=== PATIENT | male | born 1965 | race Caucasian/White ===

== ENCOUNTER 2020-11-10 08:38 | Outpatient (REF) | payer OTHER, SELFPAY ==
[2020-11-10 11:13] LABS: MANUAL DIFF FLAG NO
[2020-11-10 11:26] LABS: Basophils Percent Auto 0.6 % (0-2); Eosinophils Absolute Auto 0.1 X10*3/uL (0.0-0.4); Eosinophils Percent Auto 1.8 % (0-4); Hematocrit 46.2 % (42-52); Hemoglobin 15.2 g/dl (14.0-18.0); Imm Gran Abs Auto 0.03 X10*3/uL (0.00-0.03); Imm Gran Pct Auto 0.6 % (0.0-0.4); Lymphocytes Absolute Auto 1.4 X10*3/uL (1.2-4.9); Lymphocytes Percent Auto 29.4 % (20-40); Mean Corpuscular HGB Conc 32.9 g/dl (31.0-36.0); Mean Corpuscular Hemoglobin 30.5 pg (27.0-33.0); Mean Corpuscular Volume 92.8 fL (80-98); Mean Platelet Volume 11.1 fL (9.4-12.4); Monocytes Absolute Auto 0.4 X10*3/uL (0.1-1.2); Monocytes Percent Auto 7.1 % (2-11); Neutrophils Percent Auto 60.5 % (45-73); Platelet Count 171 X10*3/uL (160-400); Red Blood Count 4.98 X10*6/uL (4.60-5.80); Red Cell Distribution Width 12.3 % (11.0-16.0); White Blood Count 4.9 X10*3/uL (4.8-10.8)
[2020-11-10 11:37] LABS: Estimated Average Glucose 278 mg/dL; Hemoglobin A1c % 11.3 %
[2020-11-10 11:49] LABS: Alanine Aminotransferase 36 U/L (0-40); Albumin Level 4.3 g/dL (3.5-5.0); Alkaline Phosphatase 98 U/L (39-117); Anion Gap 14 (12-20); Aspartate Amino Transferase 24 U/L (5-37); Blood Urea Nitrogen 13 mg/dL (9-16); Calcium 8.8 mg/dL (8.4-10.2); Carbon Dioxide 28 mmol/L (22-29); Chloride 101 mmol/L (96-108); Cholesterol 170 mg/dL; Estimated Glomerular Filt Rate > 60; Glucose Fasting 296 mg/dL (60-99); HDL Cholesterol 44 mg/dL; LDL Cholesterol Calculated 86 mg/dl; Sodium 139 mmol/L (135-145); Total Protein 7.9 g/dL (6.5-8.0); Triglycerides 201 mg/dL
[2020-11-10 12:14] LABS: Vitamin D 25-OH Total 29.5 ng/mL (>30)
== END 2020-11-10 08:39 | disposition home or self-care (01) ==
LOC: HO.HMGCLDS 08:38
PROVIDERS: PCP Internal Medicine; Visit Provider Internal Medicine
DX: Z00.00 Encounter for general adult medical examination without abnormal findings (principal); E78.2 Mixed hyperlipidemia; E55.9 Vitamin D deficiency, unspecified; E66.09 Other obesity due to excess calories; F41.9 Anxiety disorder, unspecified
CPT/HCPCS: 36415; 80053; 80061; 82306; 83036; 85025

== ENCOUNTER 2020-11-13 12:57 | Outpatient (REF) | payer OTHER, SELFPAY ==
[2020-11-13 13:58] LABS: Estimated Average Glucose 275 mg/dL; Hemoglobin A1c % 11.2 %
[2020-11-13 14:06] LABS: Glucose Urine UA >=1000 MG/DL (NEG); Leukocyte Esterase Urine NEG (NEG); Nitrite Urine NEG (NEG); PH 5.5 (5.0-8.0); Specific Gravity - Urine 1.025 (1.005-1.025); Urine Blood NEG (NEG); Urine Ketones NEG (NEG); Urine Protein NEG (NEG-TRACE)
[2020-11-13 14:23] LABS: Glucose Random 279 mg/dL (60-115)
[2020-11-13 14:25] LABS: Appearance Urine CLEAR; Color Urine YELLOW
[2020-11-13 14:38] LABS: Creatinine Urine 94.16 mg/dL; Microalbumin Urine < 5.0 mg/L
[2020-11-13 15:11] LABS: RBC Urine 0 /HPF (0); WBC Urine 0 /HPF (0-4)
== END 2020-11-13 12:58 | disposition home or self-care (01) ==
LOC: HO.HMGCLDS 12:57
PROVIDERS: PCP Internal Medicine; Visit Provider Internal Medicine
DX: E11.9 Type 2 diabetes mellitus without complications (principal)
CPT/HCPCS: 36415; 81001; 82043; 82947; 83036

== ENCOUNTER 2021-03-09 09:33 | Outpatient (REF) | payer OTHER, SELFPAY ==
[2021-03-09 11:43] LABS: Glucose Urine UA NEG (NEG); Leukocyte Esterase Urine NEG (NEG); Nitrite Urine NEG (NEG); Specific Gravity - Urine 1.015 (1.005-1.025); Urine Blood NEG (NEG); Urine Ketones NEG (NEG); Urine Protein NEG (NEG-TRACE)
[2021-03-09 11:51] LABS: Appearance Urine CLEAR; Color Urine YELLOW
[2021-03-09 12:15] LABS: RBC Urine 0-2 /HPF (0); WBC Urine 0-2 /HPF (0-4)
[2021-03-09 12:31] LABS: Estimated Average Glucose 169 mg/dL; Hemoglobin A1c % 7.5 %
[2021-03-09 12:53] LABS: Creatinine Urine 97.65 mg/dL; Microalbumin Urine < 5.0 mg/L
[2021-03-09 13:47] LABS: Alanine Aminotransferase 29 U/L (0-40); Albumin Level 4.2 g/dL (3.5-5.0); Alkaline Phosphatase 74 U/L (39-117); Anion Gap 13 (12-20); Aspartate Amino Transferase 22 U/L (5-37); Bilirubin Total 1.3 mg/dL (0.0-1.0); Blood Urea Nitrogen 12 mg/dL (9-16); Calcium 9.1 mg/dL (8.4-10.2); Carbon Dioxide 23 mmol/L (22-29); Chloride 105 mmol/L (96-108); Cholesterol 160 mg/dL; Estimated Glomerular Filt Rate > 60; Glucose Fasting 164 mg/dL (60-99); HDL Cholesterol 42 mg/dL; LDL Cholesterol Calculated 82 mg/dl; Potassium 4.1 mmol/L (3.3-5.1); Sodium 137 mmol/L (135-145); Total Protein 7.5 g/dL (6.5-8.0); Triglycerides 180 mg/dL
== END 2021-03-09 09:34 | disposition home or self-care (01) ==
LOC: HO.HMGCLDS 09:33
PROVIDERS: PCP Internal Medicine; Visit Provider Internal Medicine
DX: E11.9 Type 2 diabetes mellitus without complications (principal)
CPT/HCPCS: 36415; 80053; 80061; 81001; 82043; 83036

== ENCOUNTER 2021-06-01 07:07 | Outpatient (REF) | payer OTHER, SELFPAY ==
[2021-06-01 11:31] LABS: MANUAL DIFF FLAG NO
[2021-06-01 11:40] LABS: Basophils Percent Auto 0.5 % (0-2); Eosinophils Absolute Auto 0.1 X10*3/uL (0.0-0.4); Eosinophils Percent Auto 1.9 % (0-4); Hematocrit 43.9 % (42-52); Hemoglobin 14.6 g/dl (14.0-18.0); Imm Gran Abs Auto 0.03 X10*3/uL (0.00-0.03); Imm Gran Pct Auto 0.5 % (0.0-0.4); Lymphocytes Absolute Auto 1.7 X10*3/uL (1.2-4.9); Lymphocytes Percent Auto 29.2 % (20-40); Mean Corpuscular HGB Conc 33.3 g/dl (31.0-36.0); Mean Corpuscular Volume 93.2 fL (80-98); Mean Platelet Volume 10.8 fL (9.4-12.4); Monocytes Absolute Auto 0.5 X10*3/uL (0.1-1.2); Monocytes Percent Auto 8.6 % (2-11); Neutrophils Absolute Auto 3.4 X10*3/uL (2.0-8.3); Neutrophils Percent Auto 59.3 % (45-73); Platelet Count 212 X10*3/uL (160-400); Red Blood Count 4.71 X10*6/uL (4.60-5.80); Red Cell Distribution Width 12.8 % (11.0-16.0); White Blood Count 5.7 X10*3/uL (4.8-10.8)
[2021-06-01 12:18] LABS: Vitamin D 25-OH Total 37.6 ng/mL (>30)
[2021-06-01 12:29] LABS: Alanine Aminotransferase 31 U/L (0-40); Albumin Level 4.4 g/dL (3.5-5.0); Alkaline Phosphatase 69 U/L (39-117); Anion Gap 13 (12-20); Aspartate Amino Transferase 26 U/L (5-37); Bilirubin Total 1.4 mg/dL (0.0-1.0); Blood Urea Nitrogen 14 mg/dL (9-16); Calcium 9.2 mg/dL (8.4-10.2); Carbon Dioxide 25 mmol/L (22-29); Chloride 104 mmol/L (96-108); Cholesterol 116 mg/dL; Estimated Glomerular Filt Rate > 60; Glucose Fasting 129 mg/dL (60-99); HDL Cholesterol 39 mg/dL; LDL Cholesterol Calculated 51 mg/dl; Potassium 3.9 mmol/L (3.3-5.1); Sodium 138 mmol/L (135-145); Total Protein 7.6 g/dL (6.5-8.0); Triglycerides 131 mg/dL
[2021-06-01 14:25] LABS: Estimated Average Glucose 163 mg/dL; Hemoglobin A1c % 7.3 %
== END 2021-06-01 07:08 | disposition home or self-care (01) ==
LOC: HO.HMGCLDS 07:07
PROVIDERS: PCP Internal Medicine; Visit Provider Internal Medicine
DX: E11.9 Type 2 diabetes mellitus without complications (principal); E66.09 Other obesity due to excess calories; E78.2 Mixed hyperlipidemia; E55.9 Vitamin D deficiency, unspecified; F41.9 Anxiety disorder, unspecified
CPT/HCPCS: 36415; 80053; 80061; 82306; 83036; 84443; 85025

== ENCOUNTER 2022-03-18 11:26 | Outpatient (REF) | payer OTHER, SELFPAY ==
[2022-03-18 15:23] LABS: MANUAL DIFF FLAG NO
[2022-03-18 15:27] LABS: Basophils Percent Auto 0.6 % (0-2); Eosinophils Absolute Auto 0.1 X10*3/uL (0.0-0.4); Eosinophils Percent Auto 1.8 % (0-4); Hematocrit 42.5 % (42.0-52.0); Hemoglobin 14.8 g/dl (14.0-18.0); Imm Gran Abs Auto 0.02 X10*3/uL (0.00-0.03); Imm Gran Pct Auto 0.4 % (0.0-0.4); Lymphocytes Absolute Auto 1.5 X10*3/uL (1.2-4.9); Lymphocytes Percent Auto 29.7 % (20-40); Mean Corpuscular HGB Conc 34.8 g/dl (31.0-36.0); Mean Corpuscular Hemoglobin 31.4 pg (27.0-33.0); Mean Platelet Volume 10.9 fL (9.4-12.4); Monocytes Absolute Auto 0.5 X10*3/uL (0.1-1.2); Monocytes Percent Auto 9.8 % (2-11); Neutrophils Absolute Auto 2.9 x10*3/uL (2.0-8.3); Neutrophils Percent Auto 57.7 % (45-73); Platelet Count 214 X10*3/uL (160-400); Red Blood Count 4.72 X10*6/uL (4.60-5.80); Red Cell Distribution Width 12.5 % (11.0-16.0)
[2022-03-18 15:33] LABS: Appearance Urine HAZY; Color Urine YELLOW; Glucose Urine UA NEG (NEG); Leukocyte Esterase Urine NEG (NEG); Nitrite Urine NEG (NEG); Specific Gravity - Urine >= 1.030 (1.005-1.025); Urine Blood NEG (NEG); Urine Ketones 15 MG/DL (NEG); Urine Protein TRACE MG/DL (NEG-TRACE)
[2022-03-18 15:38] LABS: Alanine Aminotransferase 44 U/L (0-40); Albumin Level 4.5 g/dL (3.5-5.0); Alkaline Phosphatase 68 U/L (39-117); Anion Gap 14 (12-20); Aspartate Amino Transferase 33 U/L (5-37); Bilirubin Total 1.5 mg/dL (0.0-1.0); Blood Urea Nitrogen 19 mg/dL (9-16); Calcium 9.2 mg/dL (8.4-10.2); Carbon Dioxide 23 mmol/L (22-29); Chloride 106 mmol/L (96-108); Cholesterol 114 mg/dL; Estimated Glomerular Filt Rate > 60; Glucose Fasting 152 mg/dL (60-99); HDL Cholesterol 37 mg/dL; LDL Cholesterol Calculated 54 mg/dl; Potassium 3.6 mmol/L (3.3-5.1); Sodium 139 mmol/L (135-145); Total Protein 7.8 g/dL (6.5-8.0); Triglycerides 116 mg/dL
[2022-03-18 15:49] LABS: Estimated Average Glucose 206 mg/dL; Hemoglobin A1c % 8.8 %
[2022-03-18 15:56] LABS: RBC Urine 0 /HPF (0); WBC Urine 0 /HPF (0-4)
[2022-03-18 15:57] LABS: Amorphous Sediment Urine 3+ /LPF; Microalbum/Creatinine Ratio Ur 6.1 ug/mg cr
[2022-03-18 16:00] LABS: PSA,Total (Free>4and<10) 0.65 ng/mL (0.00-4.00); Thyroid Stimulating Hormone 1.59 uIU/mL (0.32-4.0)
== END 2022-03-18 11:27 | disposition home or self-care (01) ==
LOC: HO.HMGCLDS 11:26
PROVIDERS: PCP Internal Medicine; Visit Provider Internal Medicine
DX: Z00.00 Encounter for general adult medical examination without abnormal findings (principal); E11.9 Type 2 diabetes mellitus without complications; E78.2 Mixed hyperlipidemia; E66.09 Other obesity due to excess calories; E55.9 Vitamin D deficiency, unspecified; G47.33 Obstructive sleep apnea (adult) (pediatric)
CPT/HCPCS: 36415; 80053; 80061; 81001; 82043; 82306; 83036; 84153; 84443; 85025

== ENCOUNTER 2022-05-18 08:23 | Outpatient (REF) | payer OTHER, SELFPAY ==
--- NOTE | ~2022-05-18 | US_ITS ---
EXAMINATION: US RETROPERITONEAL LIMITED (AORTA) CLINICAL INFORMATION: Family history of AAA. COMPARISON: None TECHNIQUE: Cross-scale, color Doppler and spectral Doppler evaluation of the abdominal aorta. Technically limited study secondary to bowel gas. FINDINGS: The aorta is normal. The measurements of the aorta in maximum AP and transverse dimensions respectively are as follows: Proximal: 1.9 x 1.6 cm. Mid: 2.3 x 2.5 cm. Distal: 1.9 x 1.9 cm. PSV: 123 cm/s. The measurements of the common iliac arteries in maximum AP and TRV dimensions are as follows: Right Common Iliac Artery: 1.3 x 1.2 cm. Left Common Iliac Artery: 1.2 x 1.1 cm. US/US aorta IMPRESSION: No abdominal aortic aneurysm identified..
== END 2022-05-18 08:24 | disposition home or self-care (01) ==
LOC: HO.HMGCX 08:23
PROVIDERS: PCP Internal Medicine; Visit Provider Internal Medicine
DX: Z13.6 Encounter for screening for cardiovascular disorders (principal); Z82.49 Family history of ischemic heart disease and other diseases of the circulatory system; E11.9 Type 2 diabetes mellitus without complications; E78.2 Mixed hyperlipidemia; E66.09 Other obesity due to excess calories; G47.33 Obstructive sleep apnea (adult) (pediatric)
CPT/HCPCS: 76775

== ENCOUNTER 2022-08-27 08:13 | Outpatient (REF) | payer OTHER, SELFPAY ==
[2022-08-27 11:34] LABS: Alanine Aminotransferase 47 U/L (0-40); Albumin Level 3.9 g/dL (3.5-5.0); Alkaline Phosphatase 73 U/L (39-117); Anion Gap 11 (12-20); Aspartate Amino Transferase 28 U/L (5-37); Blood Urea Nitrogen 10 mg/dL (9-16); Calcium 8.5 mg/dL (8.4-10.2); Carbon Dioxide 26 mmol/L (22-29); Chloride 104 mmol/L (96-108); Estimated Glomerular Filt Rate > 60; Glucose Fasting 205 mg/dL (60-99); Potassium 3.7 mmol/L (3.3-5.1); Sodium 137 mmol/L (135-145); Total Protein 6.7 g/dL (6.5-8.0)
[2022-08-27 11:37] LABS: Estimated Average Glucose 217 mg/dL; Hemoglobin A1c % 9.2 %
== END 2022-08-27 08:14 | disposition home or self-care (01) ==
LOC: HO.HMGCLDS 08:13
PROVIDERS: PCP Internal Medicine; Visit Provider Internal Medicine
DX: E11.9 Type 2 diabetes mellitus without complications (principal)
CPT/HCPCS: 36415; 80053; 83036

== ENCOUNTER 2023-03-18 10:29 | Outpatient (REF) | payer OTHER, SELFPAY ==
[2023-03-18 13:46] LABS: Estimated Average Glucose 214 mg/dL; Hemoglobin A1c % 9.1 %
[2023-03-18 14:05] LABS: Alanine Aminotransferase 45 U/L (0-40); Albumin Level 4.1 g/dL (3.5-5.0); Alkaline Phosphatase 87 U/L (39-117); Anion Gap 15 (12-20); Aspartate Amino Transferase 36 U/L (5-37); Bilirubin Total 1.4 mg/dL (0.0-1.0); Blood Urea Nitrogen 12 mg/dL (9-16); Calcium 9.4 mg/dL (8.4-10.2); Carbon Dioxide 22 mmol/L (22-29); Chloride 106 mmol/L (96-108); Estimated Glomerular Filt Rate > 60; Glucose Fasting 154 mg/dL (60-99); Potassium 4.2 mmol/L (3.3-5.1); Sodium 139 mmol/L (135-145); Total Protein 7.8 g/dL (6.5-8.0)
== END 2023-03-18 10:30 | disposition home or self-care (01) ==
LOC: HO.HMGCLDS 10:29
PROVIDERS: PCP Internal Medicine; Visit Provider Internal Medicine
DX: E11.9 Type 2 diabetes mellitus without complications (principal)
CPT/HCPCS: 36415; 80053; 83036

== ENCOUNTER 2023-09-05 06:49 | Outpatient (REF) | payer OTHER, SELFPAY ==
[2023-09-05 10:31] LABS: MANUAL DIFF FLAG NO
[2023-09-05 10:51] LABS: Appearance Urine Clear; Color Urine Yellow; Glucose Urine UA Negative (Negative); Leukocyte Esterase Urine Negative (Negative); Nitrite Urine Negative (Negative); PH 5.5 (5.0-9.0); Specific Gravity - Urine >= 1.030 (1.005-1.025); Urine Blood Negative (Negative); Urine Ketones 15 mg/dL (Negative); Urine Protein Negative (Neg-Trace)
[2023-09-05 11:00] LABS: Bacteria Urine None Seen (None Seen); Hyaline Casts Urine 0-2 /LPF (0-2); RBC Urine 0-2 /HPF (0-2); Squamous Epithelial Cell Urine 0-2 /HPF (0-2); WBC Urine 0-5 /HPF (0-5)
[2023-09-05 11:03] LABS: Basophils Percent Auto 0.2 % (0-2); Eosinophils Absolute Auto 0.1 X10*3/uL (0.0-0.4); Eosinophils Percent Auto 1.3 % (0-4); Hematocrit 45.8 % (42.0-52.0); Hemoglobin 15.3 g/dl (14.0-18.0); Imm Gran Abs Auto 0.03 X10*3/uL (0.00-0.03); Imm Gran Pct Auto 0.3 % (0.0-0.4); Mean Corpuscular HGB Conc 33.4 g/dl (31.0-36.0); Mean Corpuscular Volume 92.7 fL (80.0-98.0); Mean Platelet Volume 10.6 fL (9.4-12.4); Monocytes Absolute Auto 0.9 X10*3/uL (0.1-1.2); Monocytes Percent Auto 9.3 % (2-11); Neutrophils Absolute Auto 7.2 x10*3/uL (2.0-8.3); Neutrophils Percent Auto 77.9 % (45-73); Platelet Count 184 X10*3/uL (160-400); Red Blood Count 4.94 X10*6/uL (4.60-5.80); Red Cell Distribution Width 12.2 % (11.0-16.0); White Blood Count 9.2 X10*3/uL (4.8-10.8)
[2023-09-05 11:46] LABS: Estimated Average Glucose 166 mg/dL; Hemoglobin A1c % 7.4 % (<6.0)
[2023-09-05 12:17] LABS: Alanine Aminotransferase 41 U/L (0-40); Albumin Level 4.3 g/dL (3.5-5.0); Alkaline Phosphatase 69 U/L (39-117); Anion Gap 15 (12-20); Aspartate Amino Transferase 28 U/L (5-37); Bilirubin Total 1.5 mg/dL (0.0-1.0); Blood Urea Nitrogen 14 mg/dL (9-16); Calcium 9.1 mg/dL (8.4-10.2); Carbon Dioxide 24 mmol/L (22-29); Chloride 104 mmol/L (96-108); Cholesterol 122 mg/dL (<200); Estimated Glomerular Filt Rate > 60; Glucose Fasting 143 mg/dL (60-99); HDL Cholesterol 41 mg/dL (>40); LDL Cholesterol Calculated 61 mg/dL (<100); Sodium 139 mmol/L (135-145); Total Protein 7.7 g/dL (6.5-8.0); Triglycerides 100 mg/dL (<150)
[2023-09-05 12:41] LABS: Creatinine Urine 167.22 mg/dL; Microalbum/Creatinine Ratio Ur 4.1 ug/mg cr (<30)
== END 2023-09-05 06:50 | disposition home or self-care (01) ==
LOC: HO.HMGCLDS 06:49
PROVIDERS: PCP Internal Medicine; Visit Provider Internal Medicine
DX: E11.9 Type 2 diabetes mellitus without complications (principal); E78.2 Mixed hyperlipidemia
CPT/HCPCS: 36415; 80053; 80061; 81001; 82043; 82570; 83036; 85025

== ENCOUNTER 2024-02-09 06:31 | Day surgery (SDC) | payer OTHER, SELFPAY ==
[2024-02-08 06:41] VITALS: BMI 32.9
[2024-02-09 06:44] VITALS: BP 113/87; PULSE 79; RESP 18; TEMP 36.1; O2SAT 99; BMI 32.7
[2024-02-09 06:50] VITALS: BMI 32.7
[2024-02-09 06:56] LABS: Glucose, Whole Blood 157 mg/dL (60-115)
--- NOTE | 2024-02-09 07:13 | HO.ANESPROP2 ---
[facility] Past Medical History Medical History Tubular adenoma Colon polyps Diabetes Hyperlipidemia Sleep apnea Surgical History Surgical History Hx of knee surgery H/O colonoscopy History of Problems with Anesthesia: No Social History Social History Patient Tobacco Use Status: Never used Tobacco Use of substances other than those prescribed or required for medical reasons: No Are you DNR?: No Advance Directives: No Advance Directives Information Provided: Yes Meds Allergies Allergy/AdvReac Type Severity Reaction Status Date / Time No Known Allergies Allergy Unverified 06/18/20 19:03 [No Known Allergies*] Home Medications ?Medication ?Instructions ?Recorded ?Confirmed ?Last Taken ?Type atorvastatin 20 mg tablet 20 mg PO DAILY 02/08/24 02/08/24 Unknown History dulaglutide 1.5 mg/0.5 mL 1.5 mg subcut QWEEK 02/08/24 02/08/24 01/29/24 History subcutaneous pen injector (Trulicity) metformin 1,000 mg tablet 1,000 mg PO BID 02/08/24 02/08/24 Unknown History Exam Height,Weight and Vital Signs: Height 5 ft 7 in Weight 94.801 kg Last Vital Signs Temp 96.9 F 02/09/24 06:44 Pulse 79 02/09/24 06:44 Resp 18 02/09/24 06:44 BP 113/87 02/09/24 06:44 Pulse Ox 99 02/09/24 06:44 O2 Del Method Room Air 02/09/24 06:44 Pertinent Lab Results Pertinent Lab Results: Laboratory Tests 02/09/24 06:52 POC Glucose 157 H Airway Mallampati Class: III TM Dist: >3cm Neck ROM: Full Loose/Missing/Broken Teeth: No Heart: RRR Lungs: CTA Assessment and Plan Assessment Anesthesia Assessment: Anesthesia Plan Discussed and Chart Reviewed Final Anesthetic Review History of Problems with Anesthesia: No NPO: Yes ASA Class: III Final Preanesthetic Review: Meds/Allgs Chart Reviewed, Consent Obtained/Reviewed and Anes Risks/Benef Reviewed Patient Risk: Intermediate Procedure Risk: Low Anesthetic Plan Anesthetic Plan: MAC: Disposition: Standard PACU
--- NOTE | 2024-02-09 07:27 | MHC.SHP ---
Pre-Procedural Eval Section A - 24 Hr Update-Section A only Date of Service: 02/09/24 Section B - Complete if H&P > 30 days Chief Complaint: Encounter for screening for malignant neoplasm of Details of Present Illness: see H&P no changes Relevant Family History (Specify if Yes): No Relevant Social History: None Present Medications: see Short Stay Collaborative assessment Medical History: No relevant PMH History of Previous Operations: No relevant previous surgery Allergies: Allergies Allergy/AdvReac Type Severity Reaction Status Date / Time No Known Allergies Allergy Unverified 06/18/20 19:03 [No Known Allergies*] Review of Systems Sugical H&P ROS: Negative: Constitution, Cardiovascular, Respiratory, Neurological, Psychiatric, Hem-Onc, Allergic/Immunologic, Gastrointestinal, Genitourinary, Musculoskeletal, Integumentary, Endocrine and Eyes/Ears/Nose/Throat Exam Surgical H&P Exam: Normal: HEENT, Normal: Heart, Normal: Lungs, Normal: Extremities, Normal: Abdomen, Normal: Skin and Normal: Neurological Plan Diagnosis/Plan: Unchanged I have reviewed the history and physical and performed a pertinent physical examination on my patient. No changes have occurred unless specified. Time Spent With Patient Time: Total time managing care of this patient today ____ minutes.
[2024-02-09] MEDS: Lactated Ringers 1,000 ML 50 ML IVCONT (07:32)
[2024-02-09 08:02] VITALS: BP 91/57; PULSE 74; RESP 18; TEMP 36.7; O2SAT 98
[2024-02-09 08:17] VITALS: BP 112/77; PULSE 67; RESP 18; TEMP 36.7; O2SAT 95
--- NOTE | 2024-02-09 09:14 | OP_ITS ---
DATE OF SERVICE: 02/09/2024 SURGEON: Julien Gómez MD INDICATIONS: Colon cancer screening. PREOPERATIVE DIAGNOSIS: POSTOPERATIVE DIAGNOSIS: PROCEDURE PERFORMED: Colonoscopy to the terminal ileum. ESTIMATED BLOOD LOSS: COMPLICATIONS: ANESTHESIA: Monitored anesthesia care. ASSISTANTS: SPECIMENS: DESCRIPTION OF PROCEDURE: A history and physical was performed. The risks and benefits of the procedure were explained to the patient and informed consent was obtained. The patient was placed in the left lateral decubitus position. A digital rectal exam was performed and was found to be normal. The Olympus pediatric video colonoscope was introduced into the rectum and advanced to the cecum. The cecum was identified by transillumination, palpation, and identification of ileocecal valve. Examination was performed and the scope was removed. He tolerated the procedure well and was taken to the recovery area in stable condition. FINDINGS: The terminal ileum was examined and appeared normal. The visualized colonic mucosa was normal. The quality of the prep was good. No polyps were identified. There was mild diverticulosis scattered throughout the colon. Retroflexed examination showed some small internal hemorrhoids. IMPRESSION: Normal colonoscopy. RECOMMENDATIONS: 1. Follow up as needed. 2. Repeat colonoscopy is recommended in 10 years for average-risk individuals. MD BARBY Brown/BREONNA / [phone]
== END 2024-02-09 08:30 | disposition home or self-care (01) ==
PROVIDERS: PCP Internal Medicine; Visit Provider Internal Medicine Gastroenterology
PROC: 0DJD8ZZ Inspection of Lower Intestinal Tract, Via Natural or Artificial Opening Endoscopic (ICD-10-PCS; CPT 45378; principal; 2024-02-09 07:30)
DX: Z12.11 Encounter for screening for malignant neoplasm of colon (principal); Z86.010 Personal history of colon polyps; E11.9 Type 2 diabetes mellitus without complications
CPT/HCPCS: 45378; 82947; J2704

== ENCOUNTER 2024-11-06 14:32 | Outpatient (AMB) | payer OTHER, SELFPAY ==
[2024-11-06 14:35] VITALS: BP 104/62; PULSE 85; TEMP 36.6; O2SAT 96; BMI 31.3
--- NOTE | 2024-11-06 14:35 | A.OFFPC_ITS ---
Vital Signs 11/06/24 14:35 Height 5 ft 7 in Weight 200 lb BMI 31.3 BP 104/62 Blood Pressure Location Rt brachial Position Sitting Pulse 85 Temp 97.8 F Pulse Oximetry (%) 96 Intake Visit Reasons: Physical Allergies No Known Allergies [No Known Allergies*] Allergy (Unverified 11/06/24 15:32) Medication List - Last Reconciled 11/06/24 by Derrek Kwok MD atorvastatin 20 mg PO DAILY blood sugar diagnostic (FreeStyle Lite Strips) As directed cholecalciferol (vitamin D3) 50 mcg PO DAILY citalopram 20 mg PO DAILY dulaglutide (Trulicity) 1.5 mg subcut QWEEK ergocalciferol (vitamin D2) 1,250 mcg PO 2XW metformin 1,000 mg PO BIDWMEAL HPI Physical HPI Details 58-year-old male presents to the office for an annual physical. In addition patient wishes to discuss a few other conditions. He has been having neck pain for the past few months. Mostly in the right side of the neck, radiating into the right upper ext and fingers. Sx are improving, He is seeing a chiropracter. Patient is requesting an imaging of his neck. Patient is a diabetic. Her last A1c was 7.0 done at [facility]. Taking Citalopram for anxiety. [facility] Medical History Tubular adenoma Colon polyps Diabetes Hyperlipidemia Sleep apnea Surgical History Hx of knee surgery H/O colonoscopy Social History Patient Tobacco Use Status: Never used Tobacco Physical exam (Primary Care) Vital Signs: Last Vital Signs Temp 97.8 F 11/06/24 14:35 Pulse 85 11/06/24 14:35 BP 104/62 11/06/24 14:35 Pulse Ox 96 11/06/24 14:35 BMI result Body Mass Index 31.3 Tobacco/Smoking Status: Tobacco use Status Patient Tobacco Use Status Never used Tobacco 11/06/24 14:38 Const General: cooperative and healthy appearing Nutritional Appearance: well nourished Orientation/consciousness: patient oriented x3 Limitations: no limitations HENMT Head: Yes normal to inspection Eyes General: appearance normal, both eyes and all related structures Neck Neck: Yes normal visual inspection Chest Chest palpation & inspection: normal palpation of entire chest wall Resp Effort & Inspection: normal respiratory effort Neuro General: patient oriented x3 Coding Level of Care Code New Pt Level 3 (70576) New Pt Prev Care 40-64y(94508) Diagnoses Diabetes E11.9 Neck pain M54.2 Annual physical exam Z00.00 Assessment & Plan Assessment & Plan (1) Diabetes: Code(s): E11.9 - Type 2 diabetes mellitus without complications Category: Medical Plan: Fasting BW has been ordered. Continue current medication (2) Neck pain: Code(s): M54.2 - Cervicalgia Plan: C spine X ray ordered. Will call with results (3) Annual physical exam: Code(s): Z00.00 - Encounter for general adult medical examination without abnormal findings Plan: BW has been ordered. Patient is current with screening colonoscopy. Orders: Orders Liver Panel Today E11.9 - Type 2 diabetes mellitus without complications Hemoglobin A1c Today E11.9 - Type 2 diabetes mellitus without complications XR cervical spine 3V Today M54.2 - Cervicalgia Basic Metabolic Panel Today E11.9 - Type 2 diabetes mellitus without complications Complete Blood Count no Diff Today E11.9 - Type 2 diabetes mellitus without complications Lipid Panel Today E11.9 - Type 2 diabetes mellitus without complications Thyroid Stimulating Hormone Today E11.9 - Type 2 diabetes mellitus without complications Microalbumin, Random (w Creat) Today E11.9 - Type 2 diabetes mellitus without complications UA and rflx microscopic Today E11.9 - Type 2 diabetes mellitus without complications Prostate Specific Antigen Scr Today E11.9 - Type 2 diabetes mellitus without complications
== END 2024-11-06 15:32 | disposition home or self-care (01) ==
LOC: HO.HMCSH 14:32
PROVIDERS: PCP Internal Medicine; Visit Provider Internal Medicine
DX: Z00.00 Encounter for general adult medical examination without abnormal findings (principal); M54.2 Cervicalgia; E11.9 Type 2 diabetes mellitus without complications

== ENCOUNTER → 2024-11-06 14:32 | Outpatient (BNVA) | payer OTHER, SELFPAY | PROVIDERS: PCP Internal Medicine; Visit Provider Internal Medicine ==

== ENCOUNTER 2024-12-14 11:15 | Outpatient (REF) | payer OTHER, SELFPAY ==
--- NOTE | ~2024-12-14 | XR_ITS ---
EXAMINATION: XR CERVICAL SPINE 2-3 VIEWS HISTORY: M54.2 - Cervicalgia COMPARISON: There are no prior studies for comparison. FINDINGS: AP and lateral views of the cervical spine are submitted. Osseous mineralization is normal. Seven cervical vertebral bodies are identified maintaining normal height without evidence of fracture. There is straightening of the normal cervical lordosis. There is diffuse moderate degenerative disc disease with disc space narrowing and osteophyte formation. Calcifications in the left neck are likely related to the internal carotid artery. There is no prevertebral soft tissue swelling. XR/XR cervical spine 2V IMPRESSION: Straightening of the normal cervical lordosis. Diffuse moderate degenerative disc disease as described. Electronically signed by: Landen Honeycutt MD 12/16/2024 01:54 PM EDT
--- OUTSIDE RECORDS SUMMARY | 2024-12-14 11:18 | XMS_ITS ---
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 Name Role Phone Jesse (RETIRED) Landen KING Primary Care Provid er Unavailable Julien Gómez Jr REASON FOR VISIT screening Encounters Encounter Location Date Provider Diagnosis [facility] Outpatient [address] [place] [phone] 02/09/2024 Julien Gómez Jr Colon cancer screening Z12.11 Assessments Encounter Date Diagnosis (ICD Code) Assessment Notes Treatment Notes Treatment Clinical Notes Section Notes 02/09/2024 Colon cancer screening (ICD-10 - Z12.11) Plan Of Treatment No Information Progress Notes * LILO SILVER MDOB:[birth year] (58 yo M)Acc No.[id number]:02/09/2024 COLON WITH MAC Patient:?LILO SILVER Provider:?Julien Gómez MD :1965???Age:58 Y???Sex:Male Marquis e:02/09/2024 Address:[address] [place] [id number] Pcp:Landen Molina (RETIRE D), DO Subjective: * Chief Complaints: * ???1. Screening. * Medical History:? Objective: * Vitals:? Assessment: * Assessment: 1.?Colon cancer screening - Z12.11 (Primary)??? Plan: * Treatment: * Procedure Codes:?22958 DIAGN OSTIC COLONOSCOPY * * The named appointment provid er may or may not be the originator of this progress note, and it is not deemed complete until electronically signed by the appointment provider. Sign off status: Pending * Provider:?Julien Gómez MD Date:?0 02/09/2024 Generated for Bright parrish/Eduarda/Amber on:?12/14/2024 11:18 AM EDT
--- OUTSIDE RECORDS SUMMARY | 2024-12-14 11:18 | XMS_ITS ---
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 ROTATE INJECTION SITES Subcutaneous for 28 Active metFORMIN HCl 1000 MG TAKE 1 TABLET BY M OUTH TWICE A DAY WITH A MEAL FOR 90 DAYS Oral for 30 Active Atorvastatin Calcium 20 MG 1 tablet Orally Once a day A ctive Social History Tobacco Use: Social History Observation Description Date Details (start date - stop date) Never Smoker NA - NA Tobacco Use/Smoking Question Answer Notes Patient is a nonsmoker Alcohol Screen Question Answer Notes Did you have a drink containing alcohol in the p ast year? No Points 0 Interpretation Negative Problems Problem Type SNOMED Code ICD Code Onset Dates Problem Status W/U Status Risk Notes Problem 762809897 Long-term curren t use of high risk medication other than anticoagulant (Z79.899) Active confirmed Problem 329905259 Encounter for other preprocedural examination (Z01.818) Active confirmed Vital Signs Temperature 96.9 degrees Fahrenheit 12/20/19 24 Blood pressure systolic 000 mm Hg 12/20/19 24 Blood pressure diastolic 00 mm Hg 024 Height 67 in 12/20/2023 Weight 210 lbs 12/20/2023 BMI 32.89 kg/m2 12/20/2023 Encounters Encounter Location Date Provider Diagnosis [facility] [address] [facility] [address] [place] [phone] 12/20/2023 Julien Gómez Jr Colon cancer screening Z12.11 ; Encounter for other preprocedural examination Z01.818 and Long-term current use of high risk medication other than anticoagulant Z79.899 Assessments Encounter Date Diagnosis (ICD Code) Assessment Notes Treatment Notes Treatment Clinical Notes Section Notes 12/20/2023 Colon cancer screening (ICD-10 - Z12.11) We discussed colonoscopy today. We discussed risks and benefits of the procedure today. He understands these and agrees to proceed. He is advised to stop Trulicity one week before the procedure. He is advised to stop metformin the day before the procedure. 12/20/2023 Encounter for other preprocedural examination (ICD-10 - Z01.818) We discussed colonoscopy today. We discussed risks and benefits of the procedure today. He understands these and agrees to proceed. He is advised to stop Trulicity one week before the procedure. He is advised to stop metformin the day before the procedure. 12/20/2023 Long-term current use of high risk medication other than anticoagulant (ICD-10 - Z79.899) We discussed colonoscopy today. We discussed risks and benefits of the procedure today. He understands these and agrees to proceed. He is advised to stop Trulicity one week before the procedure. He is advised to stop metformin the day before the procedure. Plan Of Treatment Future Test Test Name Order Date COLONOSCOPY 12/20/2023 Next Appt Details Follow Up: 1 Year, Reason: Progress Notes * LILO SILVER MDOB:[birth year] (57 yo M)Acc No.[id number]:12/20/2023 Progress Notes Patient:?LILO SILVER Provider:?Julien Gómez MD :1965???Age:57 Y???Sex:Male Marquis e:12/20/2023 Address:[address] [place], [place] [id number] Pcp:Landen Molina, DO Subjective: * Chief Complaints: * ???1. patient presents today for HX OF TUBULAR ADENOMA. * HPI: ???New symptom(s):? Mr. Silver is a pleasant 57-year-old man seen today in consultation. He has a personal history of colon polyps and last underwent colonoscopy in 2018 with removal of a tubular adenoma. He is due for followup. He has no complaints of rectal bleeding or change in his bowel habits. Weight and appetite have been stable. * ROS:?General/Constitutional:?Change in appetite?denies.?Fatigue?denies.?ENT:?Patient denies?difficulty swallowing.?Respiratory:?Patient denies?shortness of breath.?Cardiovascular:?Patient denies?chest pain.?Gastrointestinal:?Comments?See HPI for details.?Genitourinary:?Difficulty urinating?denies.?Incontinence?denies.?Musculoskeletal:?Patient denies?muscle aches.?Skin:?Patient denies?pruritis.?Neurologic:?Patient denies?low back pain.?Psychiatric:?Patient denies?mental or physical abuse.? * Medical History:?Hyperlipide elise, DAVID/CPAP, Diabetes mellitus type 2, Colon polyps, colonoscopy 02/16, tubular adenoma, five-year followup. * Surgical History:?ACL left k nee 1993. * Family History:?Father: dece ased.?Mother: .? no known hx of colorectal,polyps or liver ds. * Social History:?Tobacco Use:?Tobacco Use/Smoking?Patient is a?nonsmoker.?Drugs/Alcohol:?Alcohol Screen?Did you have a drink containing alcohol in the past year??No,?Points?0,?Interpretation?Negative.?Miscellaneous:?Marital status: . 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 * Medications:?Taking Atorvast atin Calcium 20 MG Tablet 1 tablet Orally Once a day, Taking metFORMIN HCl 1000 MG Tablet TAKE 1 TABLET BY MOUTH TWICE A DAY WITH A MEAL FOR 90 DAYS Oral , Taking Trulicity 1.5 MG/0.5ML Solution Pen-injector INJECT 0.5ML SUBCUTANEOUSLY EVERY WEEK DIRECTED. ROTATE INJECTION SITES Subcutaneous , Medication List reviewed and reconciled with the patient * Allergies:?N.K.D.A. Objective: * Vitals:?Wt: 210 lbs, Ht: 67 in, BMI:32.89 Index, BP: 000/00 mm Hg, Temp: 96.9. * Examination: ???General Examination: ?GENERAL APPEARANCE:?in no acute distress.?HEAD:?normocephalic.?EYES:?sclera non-icteric.?ORAL CAVITY:?mucosa moist.?NECK/THYROID:?no lymphadenopathy.?SKIN:?anicteric.?HEART:?S1, S2 normal, no murmurs.?LUNGS:?clear to auscultation bilaterally.?CHEST:?normal shape and expansion.?ABDOMEN:?soft, nontender, nondistended, bowel sounds present, no organomegaly .?EXTREMITIES:?no clubbing, cyanosis, or edema.?PSYCH:?cognitive function intact.? Assessment: * Assessment: 1.?Encounter for other prepr ocedural examination - Z01.818 (Primary)?2.?Colon cancer screening - Z12.11?3.?Long-term current use of high risk medication other than anticoagulant - Z79.899? We discussed colonoscopy tod ay. We discussed risks and benefits of the procedure today. He understands these and agrees to proceed. He is advised to stop Trulicity one week before the procedure. He is advised to stop metformin the day before the procedure. Plan: * Treatment: * Procedure Codes:?3017F COLOR ECTAL CA SCREEN DOC REV, G8783 BP SCR PRFRM RCMDD DEFIND SCR INTVL, G9745 DOC RSN FOR NOT SCREEN/REC F/U HBP * Preventive Medicine:? ??Counseling:?Care goal follow-up plan:?Above Normal BMI Follow-up?Giving encouragement to exercise,?BMI management provided?Yes.? * Follow Up:?1 Year * * Sign off status: Completed true * Provider:?Julien Gómez MD Date:?0 12/20/2023 Generated for Dallini francois/Fatristian/eTransmitting on:?12/14/2024 11:18 AM EDT History and Physical Notes * HPI (History of Present Illness) Category Sub-Category Detail Notes Category Not es New symptom(s) Mr. Silver is a pleasant 57-year-old man seen today in consultation. He has a personal history of colon polyps and last underwent colonoscopy in 2018 with removal of a tubular adenoma. He is due for followup. He has no complaints of rectal bleeding or change in his bowel habits. Weight and appetite have been stable. Examination Category Sub-Category Detail Notes Category Not es General Examination GENERAL APPEARANCE: in no acute di stress HEAD: normocephalic EYES: sclera non-icteric NECK/THYROID: no lymphadenopathy HEART: S1, S2 normal, no mu rmurs CHEST: normal shape and exp ansion LUNGS: clear to auscultatio n bilaterally ABDOMEN: soft, nontender, non distended, bowel sounds present, no organomegaly SKIN: anicteric EXTREMITIES: no clubbing, cyanosi s, or edema PSYCH: cognitive function i ntact ORAL CAVITY: mucosa moist
--- OUTSIDE RECORDS SUMMARY | 2024-12-14 11:18 | XMS_ITS ---
Author Organization [facility] Savana shaggy [place] Address [address] [place] [address] Care Team Providers Care Time Study Observer Name Role Phone Landen Molina MD Primary Care Provider Unavail able Maribell Noland Unavailable [phone] Jose Casey Unavailable [phone] Allergies No Known Allergies REASON FOR VISIT Painful nail(s) aggrevated by shoes and causing difficulty standing/walking. Medications Medication SIG (Take, Route, Frequency, Duration) Notes Start Date End Date Status Atorvastatin Calcium 40 MG 1 tablet Orally Once a day for 30 day(s) Active Vitamin D2 Active metFORMIN HCl 500 MG 1 tablet with a edilberto l Orally Once a day for 30 day(s) Active Ciclopirox Olamine 0.77 % 1 application to affected area Externally Twice a day to effected areas on feet for 30 days 01/11/2021 Not-Taking Ciclopirox Olamine 0.77 % 1 application to affected area Externally Twice a day to effected areas on feet for 30 days 02/22/2024 Active Ciclopirox Olamine 0.77 % 1 application to affected area Externally Twice a day to effected areas on feet for 30 days 06/22/2021 Not-Taking Social History Tobacco Use: Social History Observation Description Date Details (start date - stop date) Never Smoker NA - NA Tobacco Use/Smoking Question Answer Notes Are you a: nonsmoker Additional Findings: Tobacco Non-User Current no n-smoker Alcohol Screen Question Answer Notes Did you have a drink contain ing alcohol in the past year? Yes How often did you have a dri nk containing alcohol in the past year? Monthly or less (1 point) Points 1 Interpretation Negative Tobacco use other than smoking: Question Answer Notes Are you an other tobacco user? No Vital Signs Height 5ft 7in in 02/22/2024 Weight 205 lbs 02/22/2024 BMI 32.1 kg/m2 02/22/2024 Encounters Encounter Location Date Provider Diagnosis [facility] [place] [address] [place] [address] 02/22/2024 JoseJones Type 2 diabetes mellitus with diabetic polyneuropathy E11.42 ; Pain in right toe(s) M79.674 ; Tinea unguium B35.1 ; Pain in left toe(s) M79.675 ; Skin disease L98.9 and Tinea pedis B35.3 Assessments Encounter Date Diagnosis (ICD Code) Assessment Notes Treatment Notes Treatment Clinical Notes Section Notes 02/22/2024 Type 2 diabetes mellitus with diabetic polyneuropathy (ICD-10 - E11.42) 02/22/2024 Pain in right toe(s) (ICD-10 - M79.674) 02/22/2024 Tinea unguium (ICD-10 - B35.1) 02/22/2024 Pain in left toe(s) (ICD-10 - M79.675) 02/22/2024 Skin disease (ICD-10 - L98.9) 02/22/2024 Tinea pedis (ICD-10 - B35.3) Plan Of Treatment Medication Medication Name Sig Start Date Stop Date Notes Ciclopirox Olamine 0.77 % 1 application to affected area Externally Twice a day to effected areas on feet for 30 days 02/22/2024 Next Appt Details Follow Up: 3 Months, Reason: Provider Name:Maribell mcmullen, 03/24/2025 09:00:00 AM, [address] [place], [address], Procedure Notes * Category Sub-Category Detail Notes Debride Nail 6-10 Nail debridement Nail debridem ent performed extensively to reduce/remove overall nail length and girth, subungual debris, and necrotic tissue, by manual and electrical means with use of a nail nipper and/or dremel, to more viable healthy nail plate or bed tissue 6-10. Silver nitrate used for any petechial bleeding as necessary. Patient chooses, no pharmaceutical tx (21316) Keratoma Treatment Parring or Cutting o f Benign Hyperkeratotic Lesion(s) 02778 (2-4 Lesions) - The Benign hyperkeratotic lesions, as described above were pared, and/or cut utilizing a sterile #15 blade, tissue nippers, and/or dremel Progress Notes * Shelton SILVERDOB:1965 (58 yo M)Acc No.[id number]:02/22/2024 Progress Note Patient:?Shelton Silver Provider:?Jose Casey DPM :1965???Age:58 Y???Sex:Male Marquis e:02/22/2024 Address:[address] [place], [place] [id number] Pcp:Landen Molina MD Subjective: * Chief Complaints: * ??? Painful nail(s) aggrevat ed by shoes and causing difficulty standing/walking. * HPI: ???At Risk footcare:?Pt States Last PCP Visit:?Date?09/01/2023 ???Skin problems:?Nature:?itching and cracked skin.?Location:?B/L , Heel/Rearfoot.?Duration:?a month.?Aggravated by:?any pressure.?Treatments:?Topical antifungal in the past.? * ROS:?General/Constitutional:?Nausea?denies.?Vomiting?denies.?Hunger Thirst?denies.?Loss appetite?denies.?Chills?denies.?Fatigue?denies.?Fever?denies.?Night Sweats?denies.?Unexplained weight loss?denies.?Unexplained weight gain?denies.?HEENTM:?Dentures?denies.?Dizziness?denies.?Glasses/contacts?admits.?Retinopathy?de nies.?Blurred/double vision?denies.?TMJ?denies.?Discharge/drainage?denies.?Implants?denies.?Sore throat?denies.?Dental implants?denies.?Hard of hearing ?denies.?Difficulty chewing/swallowing/speaking?denies.?Nose bleeds?denies.?Sore mouth?denies.?Respiratory:?On Oxygen?denies.?Pneumonia/pleurisy?denies.?Bronchitis?denies.?Emphysema?denies.?C oughing?denies.?Cough blood?denies.?Shortness of breath?denies.?Wheezing?denies.?Cardiovascular:?Pacemaker?denies.?MVP?denies.?WPW?denies.?CHF?denies.?Heart attack?denies.?Septal defect?denies.?Rapid beat?denies.?Chest pain ?denies.?Atrial Fib.?denies.?Murmur/Palpitations?denies.?Gastrointestinal:?Hemorrhoids?denies.?Stomach/Abdominal pain?denies.?Dark blood stool?denies.?Irritable bowel ?denies.?Constipation?denies.?Diarrhea?denies.?Hematology:?Swelling?denies.?Clots?denies.?Varicose Veins?denies.?Bruising?denies.?Bleeding problem?denies.?Genitourinary:?Blood urine?denies.?Frequent/Painfu/urination/bladder control?denies.?Kidney stones?denies.?Infection (UTI)?denies.?Nephropathy?denies.?sex trans dis (STD)?denies.?Prostate?denies.?Musculoskeletal:?Hammertoes?denies.?Bunions?denies.?Back Pain?denies.?Muscle Cramps/ Resting?denies.?Muscle cramps / walking?denies.?Generalized aches and pains?denies.?Weakness?denies.?Integ.:?Umana?denies.?Scars?denies.?Corns/calluses?denies.?Ingrown nails?denies.?Painful nails?denies.?Open Sores?denies.?Rashes?denies.?Neurologic:?Difficulty sleeping?denies.?Brain disorder?denies.?Numbness?denies.?Balance trouble?denies.?Confusion?denies.?Fainting/blackouts?denies.?Tingling?denies.?Tr emors?denies.? * Medical History:? * Surgical History:?acl recons truction knee surgery colonoscopy 02/22 * Hospitalization/Major Diagno stic Procedure:?Denies Past Hospitalization * Family History:?Mother: dece ased.?Father: .?Spouse: alive.?Maternal Grand Mother: diagnosed with Diabetic - NIDDM.? * Social History:?Tobacco Use:?Tobacco Use/Smoking?Are you a:?nonsmoker ?Additional Findings: Tobacco Non-User?Current non-smoker ?Tobacco use other than smoking?Are you an other tobacco user??No ???Drugs/Alcohol:?Drugs?Have you used drugs other than those for medical reasons in the past 12 months??No ?Alcohol Screen?Did you have a drink containing alcohol in the past year??Yes ?How often did you have a drink containing alcohol in the past year??Monthly or less (1 point) ?Points?1 ?Interpretation?Negative ???Miscellaneous:?no Caffeine. ?Children: yes, 2. ?Exercise: yes, walking. ?Marital status: . 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 * Medications:?TakingAtorvasta tin Calcium 40 MG Tablet 1 tablet Orally Once a daymetFORMIN HCl 500 MG Tablet 1 tablet with a meal Orally Once a dayVitamin D2 Taking Atorvastatin Calcium 40 MG Tablet 1 tablet Orally Once a dayTaking metFORMIN HCl 500 MG Tablet 1 tablet with a meal Orally Once a dayTaking Vitamin D2 Not-Taking/PRNCiclopirox Olamine 0.77 % Cream 1 application to affected area Externally Twice a day to effected areas on feetCiclopirox Olamine 0.77 % Cream 1 application to affected area Externally Twice a day to effected areas on feetMedication List reviewed and reconciled with the patientNot-Taking/PRN Ciclopirox Olamine 0.77 % Cream 1 application to affected area Externally Twice a day to effected areas on feetNot-Taking/PRN Ciclopirox Olamine 0.77 % Cream 1 application to affected area Externally Twice a day to effected areas on feetMedication List reviewed and reconciled with the patient * Allergies:?N.K.D.A.yes[Aller gies Verified] Objective: * Vitals:?Ht: 5ft 7in, Wt:205, BMI:32.1, Shoe size: 8.5, BS: 142, Ht-cm: 170.18 cm, Wt-k.99 kg. * ???Past Orders: ???Lab:HEMOGLOBIN A1C (GLYCO HEMOGLOBIN) (Order Date - 09/01/2023) (Collection Date - 09/01/2023) ? Value Reference Range ?HEMOGLOBIN A1C % (HH) 7.3 * Examination: ???Ophthalmology Referral: ?DIABETES EYE EXAM?Diabetic Retinopathy Screening:?Yes 12/23 ?Findings of Diabetic Eye Exam:?no retinopathy?Neurological: ?SENSORY:?Neurological exam demonstrates, reduced vibration sensation, 5.07 monofilament test performed at plantar aspects of 5 varied sites per foot shows sensation, reduced , at Forefoot, B/L.?Vascular: ?DP PULSES:?3/4, B/L.?PT PULSES:? 2/4, B/L.?CAPILLARY FILL TIME:?3 secs. per digit. B/L.?SKIN TEMPERTURE GRADIENT OF THE LOWER EXTERMITIES:?normal, B/L.?HAIR GROWTH/TEXTURE/ELASTICITY/TURGOR:?normal, B/L.?PIGMENTATION:?normal, B/L.?EDEMA:?absent, B/L.?TELANGECTASIA:?absent, B/L.?Nails: ?NAILS are:?Elongated, overgrown, dystrophic, lytic, greater than 3mm thick, discolored and friable with crumbly malodorous subungual debris, with dull to no pain on palpation due to neuropathy, 1-5 Right foot, T3, T4 , proximal clearing of nail __70__ %.?Dermatologic: ?SKIN FINDINGS:? Skin exam reveals Keratotic lesion(s) located at, SUB MTH (s), 1, 5, B/L , Heel(s), B/L , Skin shows sign(s) of, dryness, scaling, in a stocking fashion, fissure and macerated skin noted btw 4/5 toes preston and preston heels.?General Examination: ?GENERAL APPEARANCE:?pleasant, alert, well nourished, well developed, well hydrated, with good attention to hygene/body habitus, and in no acute distress.?ORIENTED:?person,place, and time.?Orthopedic: ?MUSCLE STRENGTH:?5/5 all groups in a symmetrical fashion , B/L.?FOOT MORPHOLOGY:? Pes Planus structure, B/L-mild.? Assessment: * Assessment: 1.?Type 2 diabetes mellitus with diabetic polyneuropathy - E11.42?2.?Pain in right toe(s) - M79.674?3.?Pain in left toe(s) - M79.675?4.?Tinea unguium - B35.1 (Primary)?5.?Skin disease - L98.9?6.?Tinea pedis - B35.3? Plan: * Treatment: * Procedures:?Debride Nail 6-10:?Nail debridement?Nail debridement performed extensively to reduce/remove overall nail length and girth, subungual debris, and necrotic tissue, by manual and electrical means with use of a nail nipper and/or dremel, to more viable healthy nail plate or bed tissue 6-10. Silver nitrate used for any petechial bleeding as necessary. Patient chooses, no pharmaceutical tx (28419).?Keratoma Treatment:?Parring or Cutting of Benign Hyperkeratotic Lesion(s)?36743 (2-4 Lesions) - The Benign hyperkeratotic lesions, as described above were pared, and/or cut utilizing a sterile #15 blade, tissue nippers, and/or dremel.? * Procedure Codes:?31276 DEBRI DE NAIL, 6 OR MORE, Modifiers: XS 74447 TRIM SKIN LESIONS, OVER 4, Modifiers: XS * Preventive Medicine:? ??Counseling:?Discussion:?-13: Office or other outpatient visit for the evaluation and management of an established patient, which required a medically appropriate history and/or examination and LOW level of DECISION MAKING for: 1 STABLE ACUTE UNCOMPLICATED PROBLEM, 2 OR MORE MINOR PROBLEMS, OR 1 STABLE CHRONIC PROBLEM, THAT POSE(S) A LOW RISK FOR MORBIDITY/MORTALITY. The visit on the day of the encounter encompassed interpreting the data and educating the patient as to the nature of their condition, treatment options available according to their individual PMH, meds, allergies, and overall health/living conditions, as well as any potential risks or complications that may occur from a failure to adhere to, and participate in, the recommended course of therapy. The discussion included a complete verbal, and/or written explanation of the examination results, any x-rays taken, the proposed diagnosis, and outline of the treatment plan. A schedule for future care needs was also explained. The patient verbalized an understanding of the instructions at this time and agreed to be an active participant in their treatment. If the patient should think of any questions or concerns after the visit, I have encouraged the patient to call the office.?Tinea Pedis:?The patient was counseled on the diagnosis, potential etiologies, and treatment options for their skin condition. We discussed the risks and benefits of each option from performing no treatment, to utilizing OTC topical skin creams, prescription topical creams, customized compounded topical medications, and, if necessary, to utilize oral antifungal therapy. We discussed the advantages and disadvantages of each possible treatment and importance for adherence to all the recommended therapies for optimum success and avoid potential complications such as open sore/infection/possible hospitalization. We discussed the potential effectiveness of each topical preparation as well as each ones possible side effects and/or patient medication interactions if oral therapy is selected. Patient questions re: the advantages and disadvantages of each treatment choice, medication use/dosage, successful outcomes, and application consistency were reviewed and the patient verbalized that all answers were clearly understood. The patient was told they can help alleviate symptoms by utilizing moisture absorbant innersoles with activated charcoal and baking soda, applying antifungal sprays daily, aerating toe web spaces at night by putting cotton or lambs wool between the toes, alternating shoe gear daily if possible so they can dry out, changing socks at least once during the day, wearing well-ventilated shoes or sandals. The patient has decided to apply antifungal skin creams to their feet as directed. Rx was sent to their pharmacy at the time of visit.? * Follow Up:?3 Months * Images: * Sign off status: Completed true * Provider:?Jose Casey DPM Date:? 024 Generated for Bright parrish/Eduarda/Gaetanoitting on:?12/14/2024 11:18 AM EDT History and Physical Notes * HPI (History of Present Illness) Category Sub-Category Detail Notes Category Not es Skin problems Nature: itching and cracked skin Location: B/L , Heel/Rearfoot Duration: a month Aggravated by: any pressure Treatments: Topical antifungal i n the past At Risk footcare Pt States Last PCP Visit: Date: 3 Examination Category Sub-Category Detail Notes Category Not es Neurological SENSORY: Neurological exa m demonstrates, reduced vibration sensation, 5.07 monofilament test performed at plantar aspects of 5 varied sites per foot shows sensation, reduced , at Forefoot, B/L Dermatologic SKIN FINDINGS: Skin exam reveal s Keratotic lesion(s) located at, SUB MTH (s), 1, 5, B/L , Heel(s), B/L , Skin shows sign(s) of, dryness, scaling, in a stocking fashion, fissure and macerated skin noted btw 4/5 toes preston and preston heels Orthopedic FOOT MORPHOLOGY: Pes Planus structure, B/ L-mild MUSCLE STRENGTH: 5/5 all groups in a symmetrical fashion , B/L General Examination GENERAL APPEARANCE: pleasant , alert, well nourished, well developed, well hydrated, with good attention to hygene/body habitus, and in no acute distress ORIENTED: person,place, and ti me Ophthalmology Referral DIABETES EYE EXAM Diabetic Reti nopathy Screening:: Yes 12/23 Findings of Diabetic Eye Exam:: no retin opathy Vascular DP PULSES (B): 3/4, B/L PT PULSES (B): 2/4, B/L CAPILLARY FILL TIME: 3 secs. per digit. B/L TEMPERTURE GRADIENT (C): normal, B/L TROPHIC CONDITION-TEXTURE/ELASTICITY/TUR GOR/HAIR GROWTH (B): normal, B/L EDEMA (C): absent, B/L TELANGECTASIA: absent, B/L PIGMENTATION: normal, B/L Nails NAILS are: Elongated, overg rown, dystrophic, lytic, greater than 3mm thick, discolored and friable with crumbly malodorous subungual debris, with dull to no pain on palpation due to neuropathy, 1-5 Right foot, T3, T4 , proximal clearing of nail __70__ %
--- OUTSIDE RECORDS SUMMARY | 2024-12-14 11:19 | XMS_ITS ---
Continuity of Care Document (CCD) Created on: December 14, 2024 Shelton Hercules External Reference #: [id number] Sex: Male Author Organization [facility] [address] [place] [address] Phone [phone] Care Team Providers Care Access Services Representative Name Role Phone Landen Molina M.D. Care Team Information Recei deana [phone] Problems Active Problems Provider Date Type 2 diabetes mellitus Andrew Watters M.D. O nset: 06/02/2023 Anxiety Andrew Watters M.D. Onset: 10/2022 Hyperlipidemia Andrew Watters M.D. Onset: 10/2022 Vitamin D deficiency Andrew Watters M.D. Onset : 06/02/2023 Morbid obesity Andrew Watters M.D. Onset: 10/2022 Gastroesophageal reflux disease Andrew Watters M.D. Onset: 06/02/2023 Dependence on continuous pos itive airway pressure ventilation Andrew Watters M.D. Onset: 06/02/2023 Obstructive sleep apnea syndrome Andrew Watters M.D. Onset: 06/02/2023 Hypercholesterolemia Andrew Watters M.D. Onset : 06/02/2023 Social History Type Date Description Comments Sex Unknown Tobacco Use Start: Unknown Never Smoked Cigarettes Smoking Status Reviewed: 06/02/23 Never Smoked Cigaret glo ETOH Use Occasionally consumes alcoho l Allergies and adverse reactions Description No Known Drug Allergies Medications Active Medications SIG Qnty Indications Order ing Provider Date [id number] Tablets Take 1 Tablet By Mouth Daily For Type 2 Diabetes 90tabs Jessica Talamantes M.D. 03/27/2024 Vitamin D-1000 Maximum [id number] (1000 Ut) Tablets 2 by mouth every day Andrew Watters M.D. 06/02/2023 Metformin [id number] Tablets Take 1 Tablet By Mouth Twice A Day With A Meal For 90 Days Landen Molina M.D. Atorvastatin [id number] Tablets Take 1 Tablet By Mouth Every Day For 90 Days Landen Molina M.D. Trulicity1.5mg/0.5M L Solution Pen-Inject Inject 0.5 ML Subcutaneously One Time Per Week Landen Molina M.D. Vital Signs Date Vital Result Comment 11/05/2024 9:02am BP Systolic 102 mmHg BP Diastolic 70 mmHg Heart Rate 75 /min Height 67 inches 5'7 Weight 206.12 lb BMI (Body Mass Index) 32.3 kg/m2 Results Test Acquired Date Facility Test Result H/L Range N ote Hemoglobin A1c 11/05/2024 Inhouse Hemoglobin A1c 7.0% Glucose Fingerstick 11/05/2024 Inhouse Glucose Fingerstick 169 Hemoglobin A1c 07/08/2024 Inhouse Hemoglobin A1c 7.7% Glucose Fingerstick 07/08/2024 Inhouse Glucose Fingerstick 212 Hemoglobin A1c 03/27/2024 Inhouse Hemoglobin A1c 8.0% Glucose Fingerstick 03/27/2024 Inhouse Glucose Fingerstick 189 Hemoglobin A1c 06/02/2023 Inhouse Hemoglobin A1c 7.9% Glucose Fingerstick 06/02/2023 Inhouse Glucose Fingerstick 191 Medical Devices Description No Information Available Encounters Type Date Location Provider Dx Diagnosis Office Visit 11/05/2024 9:00a Main Office CADEN Hagan E11.9 Type 2 diabet es mellitus without complications E78.00 Pure hypercholestero lemia, unspecified G47.33 Obstructive sleep ap jaquelin (adult) (pediatric) Assessments Date Code Description Provider 11/05/2024 E11.9 Type 2 diabetes mellitus wit hout complications CADEN Hagan 11/05/2024 E78.00 Hypercholesterolemia CADEN Hagan 11/05/2024 G47.33 Obstructive sleep apnea synd albaro CADEN Hagan Plan of Treatment Future Appointment(s):* 05/12/2025 8:00 am - CADEN Hagan at Main Office 03/27/2024 - CADEN Hagan* E11.9 Type 2 diabetes mellitus without complications * Functional Status Description No Information Available Mental Status Description No Information Available Referrals Description No Information Available
--- OUTSIDE RECORDS SUMMARY | 2024-12-14 11:19 | XMS_ITS ---
Author Organization [facility] Cherrijung Kangley Address [address] [place] [address] Care Team Providers Care Postal Clerk Name Role Phone Landen Molina MD Primary Care Provider Unavail able Maribell Noland Unavailable [phone] Allergies No Known Allergies REASON FOR VISIT Skin Problem, At Risk Footcare Medications Medication SIG (Take, Route, Frequency, Duration) Notes Start Date End Date Status Ciclopirox Olamine 0.77 % 1 application to affected area Externally Twice a day to effected areas on feet for 30 days 01/11/2021 Not-Taking Ciclopirox Olamine 0.77 % 1 application Externally Twice a day to skin of feet including between the toes for 30 days Active Ciclopirox Olamine 0.77 % 1 application to affected area Externally Twice a day to effected areas on feet for 30 days 06/22/2021 Not-Taking Vitamin D2 Active Ciclopirox Olamine 0.77 % 1 application to affected area Externally Twice a day to effected areas on feet for 30 days Active metFORMIN HCl 500 MG 1 tablet with a edilberto l Orally Once a day for 30 day(s) Active Atorvastatin Calcium 40 MG 1 tablet Orally Once a day for 30 day(s) Active Social History Tobacco Use: Social History Observation Description Date Details (start date - stop date) Never Smoker NA - NA Tobacco Use/Smoking Question Answer Notes Are you a: nonsmoker Additional Findings: Tobacco Non-User Current no n-smoker Tobacco use other than smoking: Question Answer Notes Are you an other tobacco user? No Vital Signs Height 5ft7in in 09/04/2024 Weight 205 lbs 09/04/2024 BMI 32.1 kg/m2 09/04/2024 Procedures Procedure Date Ordered Date Performed Result Body Sit e 94502-KFFLWHM NAIL, 6 OR MORE 09/04/2024 N/A 25815-ESGW SKIN LESIONS, OVER 4 09/04/2024 N/A Encounters Encounter Location Date Provider Diagnosis [facility] [address] [address] 09/04/2024 Maribell Noland Tinea pedis of both feet B35.3 ; Type 2 diabetes mellitus with diabetic polyneuropathy E11.42 and Tinea unguium B35.1 Assessments Encounter Date Diagnosis (ICD Code) Assessment Notes Treatment Notes Treatment Clinical Notes Section Notes 09/04/2024 Tinea pedis of both feet (ICD-10 - B35.3) 09/04/2024 Type 2 diabetes mellitus with diabetic polyneuropathy (ICD-10 - E11.42) 09/04/2024 Tinea unguium (ICD-10 - B35.1) Plan Of Treatment Medication Medication Name Sig Start Date Stop Date Notes Ciclopirox Olamine 0.77 % 1 application Externally Twice a day to skin of feet including between the toes for 30 days Pending Test Test Name Order Date 63090-MCHYUJD NAIL, 6 OR MORE 09/04/2024 30394-BMCG SKIN LESIONS, OVER 4 09/04/20 24 Next Appt Details Follow Up: 6 Months, Reason: Provider Name:Maribell mcmullen, 03/24/2025 09:00:00 AM, [address] [place] [address], [id number], Procedure Notes * Category Sub-Category Detail Notes Debride Nail 6-10 Nail debridement Performance o f this nail treatment by a nonprofessional would put this patients foot and overall health at risk. Therefore, debridement to affected nail(s), as described in exam, was performed extensively to reduce/remove overall nail length, girth, thickness, subungual debris, and necrotic tissue, by manual and/or electrical means through the use of a nail nipper and/or dremel-type fiberglass grinder, to a more viable healthy nail plate or bed tissue 6-10 nails in total. Silver nitrate was used for any petechial bleeding as necessary. Definitive antifungal treatment options, both pharmaceutical and surgical, have been reviewed and discussed with the patient. The patient solely prefers the use of intermittent/as needed professional debridement services for their nail condition and understands the need for additional periodic treatments to maintain effectiveness in symptomatic relief - 82856 Keratoma Treatment Parring or Cutting o f Benign Hyperkeratotic Lesion(s) (-57) More than 4 Lesions - The Benign hyperkeratotic lesions, ( 6) in total, locations as stated and described in exam, were pared, and/or cut utilizing a sterile 15 blade, tissue nippers, and/or power Temptster instrumentation - 64485 Progress Notes * Shelton SILVERDOB:1965 (58 yo M)Acc No.[id number]:09/04/2024 Progress Note Patient:?Shelton SILVER Provider:?Maribell Noland DPM :1965???Age:58 Y???Sex:Male Marquis e:09/04/2024 Address:[address] [place] [address] [id number] Pcp:Landen Molina MD Subjective: * Chief Complaints: * ???Skin ProblemAt Risk Footc are * HPI: ???Skin problems:?Nature:?scaling , redness.?Location:?B/L .?Duration:?several days.?Course:?worse.?At Risk footcare:?Pt States Last PCP Visit:?Date?09/19/2023 * ROS:?General/Constitutional:?Nausea?denies.?Vomiting?denies.?Hunger Thirst?denies.?Loss appetite?denies.?Chills?denies.?Fatigue?denies.?Fever?denies.?Night Sweats?denies.?Unexplained weight loss?denies.?Unexplained weight gain?denies.?HEENTM:?Dentures?denies.?Dizziness?denies.?Glasses/contacts?admits.?Retinopathy?den ies.?Blurred/double vision?denies.?TMJ?denies.?Discharge/drainage?denies.?Implants?denies.?Sore throat?denies.?Dental implants?denies.?Hard of hearing ?denies.?Difficulty chewing/swallowing/speaking?denies.?Nose bleeds?denies.?Sore mouth?denies.?Respiratory:?On O xygen?denies.?Pneumonia/pleurisy?denies.?Bronchitis?denies.?Emphysema?denies.?Co ughing?denies.?Cough blood?denies.?Shortness of breath?denies.?Wheezing?denies.?Cardiovascular:?Pacemaker?denies.?MVP?denies.?WPW?denies.?CHF?denies.?Heart attack?denies.?Septal defect?denies.?Rapid beat?denies.?Chest pain ?denies.?Atrial Fib.?denies.?Murmur/Palpitations?denies.?Gastrointestinal:?Hemorrhoids?denies.?Stomach/Abdominal pain?denies.?Dark blood stool?denies.?Irritable bowel ?denies.?Constipation?denies.?Diarrhea?denies.?Hematology:?Swelling?denies.?Clots?denies.?Varicose Veins?denies.?Bruising?denies.?Bleeding problem?denies.?Genitourinary:?Blood urine?denies.?Frequent/Painfu/urination/bladder control?denies.?Kidney stones?denies.?Infection (UTI)?denies.?Nephropathy?denies.?sex trans dis (STD)?denies.?Prostate?denies.?Musculoskeletal:?Hammertoes?denies.?Bunions?denies.?Back Pain?denies.?Muscle Cramps/ Resting?denies.?Muscle cramps / walking?denies.?Generalized aches and pains?denies.?Weakness?denies.?Integ.:?Umana?denies.?Scars?denies.?Corns/calluses?denies.?Ingrown nails?admits.?Painful nails?denies.?Open Sores?denies.?Rashes?denies.?Neurologic:?Difficulty sleeping?denies.?Brain disorder?denies.?Numbness?admits.?Balance t rouble?denies.?Confusion?denies.?Fainting/blackouts?denies.?Tingling?denies.?Martin mors?denies.? * Medical History:? * Surgical History:?acl recons truction knee surgery colonoscopy 02/22 * Hospitalization/Major Diagno stic Procedure:?Denies Past Hospitalization * Family History:?Mother: dece ased.?Father: .?Spouse: alive.?Maternal Grand Mother: diagnosed with Diabetic - NIDDM.? * Social History:?Tobacco Use:?Tobacco Use/Smoking?Are you a:?nonsmoker ?Additional Findings: Tobacco Non-User?Current non-smoker ?Tobacco use other than smoking?Are you an other tobacco user??No * Medications:?TakingCiclopiro x Olamine 0.77 % Cream 1 application to affected area Externally Twice a day to effected areas on feet Atorvastatin Calcium 40 MG Tablet 1 tablet Orally Once a day metFORMIN HCl 500 MG Tablet 1 tablet with a meal Orally Once a day Vitamin D2 Taking Ciclopirox Olamine 0.77 % Cream 1 application to affected area Externally Twice a day to effected areas on feet Taking Atorvastatin Calcium 40 MG Tablet 1 tablet Orally Once a day Taking metFORMIN HCl 500 MG Tablet 1 tablet with a meal Orally Once a day Taking Vitamin D2 Not-Taking/PRNCiclopirox Olamine 0.77 % Cream 1 application to affected area Externally Twice a day to effected areas on feet Ciclopirox Olamine 0.77 % Cream 1 application to affected area Externally Twice a day to effected areas on feet Medication List reviewed and reconciled with the patientNot-Taking/PRN Ciclopirox Olamine 0.77 % Cream 1 application to affected area Externally Twice a day to effected areas on feet Not-Taking/PRN Ciclopirox Olamine 0.77 % Cream 1 application to affected area Externally Twice a day to effected areas on feet Medication List reviewed and reconciled with the patient * Allergies:?N.K.D.A.yes[Aller gies Verified] Objective: * Vitals:?Ht: 5ft7in, Wt:205, BMI:32.1, Shoe size: 8.5, BS: not taken, Ht-cm: 170.18 cm, Wt-k.99 kg. * ???Past Orders: ???Lab:HEMOGLOBIN A1C (GLYCO HEMOGLOBIN) (Order Date - 09/01/2023) (Collection Date & Time - 09/01/2023 08:05 AM) ? Value Reference Range ?HEMOGLOBIN A1C % (HH) 7.3 * Examination: ???General Examination: ?GENERAL APPEARANCE:?Reveals a pleasant, alert, well nourished, well- developed, well hydrated individual, who demonstrates proper attention to hygiene/body habitus, and is in no acute distress, Pt serves as own historian for office visit today.?ORIENTED:?person, place, and time.?Dermatologic: ?SKIN FINDINGS:?Skin shows sign(s) of, erythema, scaling, in a moccasin fashion, no fissure(s) present, B/L ,?Skin exam reveals Keratotic lesion(s) located at, SUB MTH (s), 1, 5, B/L , plantar?Heel(s), B/L.?Neurological: ?SENSORY:?Neurological exam demonstrates, reduced light touch sensation, reduced sharp/dull pin prick discrimination , B/L, 5.07 monofilament test performed at plantar aspects of 5 varied sites per foot shows sensation, reduced , B/L.?Nails: ?NAILS are:?Elongated, overgrown, dystrophic, lytic, greater than 3mm thick, discolored and friable with crumbly malodorous subungual debris, 1-5 B/L with approximately 70 % proximal clearing.?Vascular: ?DP PULSES(B):?3/4, B/L.?PT PULSES(B):?3/4, B/L.?CAPILLARY FILL TIME:?immediate, all digits, B/L.?TROPHIC CONDITION-TEXTURE/ELASTICITY/TURGOR/HAIR GROWTH(B):?normal, B/L.?TEMPERTURE GRADIENT(C):?normal, warm to cool, proximal to distal, B/L, B/L.?EDEMA(C):?absent, B/L.?Orthopedic: ?MUSCLE STRENGTH:?5/5 all groups in a symmetrical fashion, B/L.?Ophthalmology Referral: ?DIABETES EYE EXAM?Procedure Performed:?Yes ?Date of Exam Performed?11/02/2023 ?Findings of Diabetic Eye Exam:?no retinopathy??? Assessment: * Assessment: 1.?Tinea pedis of both feet - B35.3???Specify :Acute problem, Uncomplicated (3),Rx drug management (4)???2.?Type 2 diabetes mellitus with diabetic polyneuropathy - E11.42 (Primary)???3.?Tinea unguium - B35.1??? Plan: * Treatment: 2.?Tinea pedis of both feet? Start Ciclopirox Olamine Cream, 0.77 %, 1 application, Externally, Twice a day to skin of feet including between the toes, 30 days, 60, Refills 2.?? * Procedures:?Debride Nail 6-10:?Nail debridement?Performance of this nail treatment by a nonprofessional would put this patients foot and overall health at risk. Therefore, debridement to affected nail(s), as described in exam, was performed extensively to reduce/remove overall nail length, girth, thickness, subungual debris, and necrotic tissue, by manual and/or electrical means through the use of a nail nipper and/or dremel-type fiberglass grinder, to a more viable healthy nail plate or bed tissue 6-10 nails in total. Silver nitrate was used for any petechial bleeding as necessary. Definitive antifungal treatment options, both pharmaceutical and surgical, have been reviewed and discussed with the patient. The patient solely prefers the use of intermittent/as needed professional debridement services for their nail condition and understands the need for additional periodic treatments to maintain effectiveness in symptomatic relief - 25925.?Keratoma Treatment:?Parring or Cutting of Benign Hyperkeratotic Lesion(s)?(-57) More than 4 Lesions - The Benign hyperkeratotic lesions, ( 6) in total, locations as stated and described in exam, were pared, and/or cut utilizing a sterile 15 blade, tissue nippers, and/or power dremel instrumentation - 54843.? * Procedure Codes:?05426 DEBRI DE NAIL, 6 OR MORE, Modifiers: XS 41789 TRIM SKIN LESIONS, OVER 4, Modifiers: XS [...] at the time of visit.? * Follow Up:?6 Months * Images: * Sign off status: Completed true * Provider:?Maribell Noland DPM Date:?1 11/05/2023 Generated for Bright parrish/Eduarda/Farhadsmitting on:?12/14/2024 11:18 AM EDT History and Physical Notes * HPI (History of Present Illness) Category Sub-Category Detail Notes Category Not es Skin problems Nature: scaling , redness Location: B/L Duration: several days Course: worse At Risk footcare Pt States Last PCP Visit: Date: 3 Examination Category Sub-Category Detail Notes Category Not es Neurological SENSORY: Neurological exa m demonstrates, reduced light touch sensation, reduced sharp/dull pin prick discrimination , B/L, 5.07 monofilament test performed at plantar aspects of 5 varied sites per foot shows sensation, reduced , B/L Dermatologic SKIN FINDINGS: Skin shows sign( s) of, erythema, scaling, in a moccasin fashion, no fissure(s) present, B/L , Skin exam reveals Keratotic lesion(s) located at, SUB MTH (s), 1, 5, B/L , plantar Heel(s), B/L Orthopedic MUSCLE STRENGTH: 5/5 all groups in a symmetrical fashion, B/L General Examination GENERAL APPEARANCE: Reveals a pleasant, alert, well nourished, well-developed, well hydrated individual, who demonstrates proper attention to hygiene/body habitus, and is in no acute distress, Pt serves as own historian for office visit today ORIENTED: person, place, and t anine Ophthalmology Referral DIABETES EYE EXAM Procedure Perform ed:: Yes ?Date of Exam Performed: 11/02/2023 Findings of Diabetic Eye Exam:: no retin opathy Vascular DP PULSES (B): 3/4, B/L PT PULSES (B): 3/4, B/L CAPILLARY FILL TIME: immediate, all digi ts, B/L TEMPERTURE GRADIENT (C): normal, warm to cool, proximal to distal, B/L, B/L TROPHIC CONDITION-TEXTURE/ELASTICITY/TURGOR/HAIR GROWTH (B): normal, B/L EDEMA (C): absent, B/L Nails NAILS are: Elongated, overg rown, dystrophic, lytic, greater than 3mm thick, discolored and friable with crumbly malodorous subungual debris, 1-5 B/L with approximately 70 % proximal clearing
--- OUTSIDE RECORDS SUMMARY | 2024-12-14 11:19 | XMS_ITS ---
Author Organization [facility] Cherrijung [place] Address [address] [place] [address] Care Team Providers Care Well Head Pumper Name Role Phone Landen Molina MD Primary Care Provider Unavail able Maribell Noland Unavailable [phone] Jose Casey Unavailable [phone] Allergies No Known Allergies REASON FOR VISIT Painful nail(s) aggrevated by shoes and causing difficulty standing/walking. Medications Medication SIG (Take, Route, Frequency, Duration) Notes Start Date End Date Status Vitamin D2 Active metFORMIN HCl 500 MG [...] on feet for 30 days 06/22/2021 Not-Taking Ciclopirox Olamine 0.77 % 1 application to affected area Externally Twice a day to effected areas on feet for 30 days Active Social History Tobacco Use: Social History [...] No Vital Signs Height 5ft 7in in 05/23/2024 Weight 205 lbs 05/23/2024 BMI 32.10 kg/m2 05/23/2024 Blood pressure systolic 120 mm Hg 05/23/20 24 Blood pressure diastolic 77 mm Hg 024 Encounters Encounter Location Date Provider Diagnosis [facility] [place] [address] [place] [address] 05/23/2024 Jose Casey Type 2 diabetes mellitus with diabetic polyneuropathy E11.42 ; Pain in right toe(s) M79.674 ; Tinea unguium B35.1 ; Pain in left toe(s) M79.675 ; Skin disease L98.9 and Tinea pedis B35.3 Assessments Encounter Date Diagnosis (ICD Code) Assessment Notes Treatment Notes Treatment Clinical Notes Section Notes 05/23/2024 Type 2 diabetes mellitus with diabetic polyneuropathy (ICD-10 - E11.42) 05/23/2024 Pain in right toe(s) (ICD-10 - M79.674) 05/23/2024 Tinea unguium (ICD-10 - B35.1) 05/23/2024 Pain in left toe(s) (ICD-10 - M79.675) 05/23/2024 Skin disease (ICD-10 - L98.9) 05/23/2024 Tinea pedis (ICD-10 - B35.3) Plan Of Treatment Medication Medication Name Sig Start Date Stop Date Notes Ciclopirox Olamine 0.77 % 1 application to affected area Externally Twice a day to effected areas on feet for 30 days Next Appt Details Follow Up: 3 Months, Reason: Provider Name:Maribell mcmullen, 03/24/2025 09:00:00 AM, [address] [place], [address], Procedure Notes * Category Sub-Category Detail Notes [...] as necessary. Patient chooses, no pharmaceutical tx (05749) Keratoma Treatment Parring or Cutting o f Benign Hyperkeratotic Lesion(s) 58968 (2-4 Lesions) - The Benign hyperkeratotic lesions, as described above were pared, and/or cut utilizing a sterile #15 blade, tissue nippers, and/or dremel Progress Notes * Shelton SILVERDOB:1965 (58 yo M)Acc No.[id number]:05/23/2024 Progress Note Patient:?Shelton SILVER Provider:?Jose Casey DPM :1965???Age:58 Y???Sex:Male Marquis e:05/23/2024 Address:[address] [place] [address] [facility] Pcp:Landen Molina MD Subjective: * Chief Complaints: * ??? Painful nail(s) aggrevat ed by shoes and causing difficulty standing/walking. * HPI: ???At Risk footcare:?Pt States Last PCP Visit:?Date?09/01/2023 ???Skin problems:?Nature:?dryness.?Location:?B/L , Heel/Rearfoot.?Aggravated by:?any pressure.? * ROS:?General/Constitutional:?Nausea?denies.?Vomiting?denies.?Hunger Thirst?denies.?Loss appetite?denies.?Chills?denies.?Fatigue?denies.?Fever?denies.?Night Sweats?denies.?Unexplained weight loss?denies.?Unexplained weight gain?denies.?HEENTM:?Dentures?denies.?Dizziness?denies.?Glasses/contacts?admits.?Retinopathy?den ies.?Blurred/double vision?denies.?TMJ?denies.?Discharge/drainage?denies.?Implants?denies.?Sore throat?denies.?Dental implants?denies.?Hard of hearing ?denies.?Difficulty chewing/swallowing/speaking?denies.?Nose bleeds?denies.?Sore mouth?denies.?Respiratory:?On O xygen?denies.?Pneumonia/pleurisy?denies.?Bronchitis?denies.?Emphysema?denies.?Co ughing?denies.?Cough blood?denies.?Shortness of breath?denies.?Wheezing?denies.?Cardiovascular:?Pacemaker?denies.?MVP?denies.?WPW?denies.?CHF?denies.?Heart attack?denies.?Septal defect?denies.?Rapid beat?denies.?Chest pain ?denies.?Atrial Fib.?denies.?Murmur/Palpitations?denies.?Gastrointestinal:?Hemorrhoids?denies.?Stomach/Abdominal pain?denies.?Dark blood stool?denies.?Irritable bowel ?denies.?Constipation?denies.?Diarrhea?denies.?Hematology:?Swelling?denies.?Clots?denies.?Varicose Veins?denies.?Bruising?denies.?Bleeding problem?denies.?Genitourinary:?Blood urine?denies.?Frequent/Painfu/urination/bladder control?denies.?Kidney stones?denies.?Infection (UTI)?denies.?Nephropathy?denies.?sex trans dis (STD)?denies.?Prostate?denies.?Musculoskeletal:?Hammertoes?denies.?Bunions?denies.?Back Pain?denies.?Muscle Cramps/ Resting?denies.?Muscle cramps / walking?denies.?Generalized aches and pains?denies.?Weakness?denies.?Integ.:?Umana?denies.?Scars?denies.?Corns/calluses?denies.?Ingrown nails?denies.?Painful nails?denies.?Open Sores?denies.?Rashes?denies.?Neurologic:?Difficulty sleeping?denies.?Brain disorder?denies.?Numbness?denies.?Balance t rouble?denies.?Confusion?denies.?Fainting/blackouts?denies.?Tingling?denies.?Martin mors?denies.? * Medical History:? * [...] year??Monthly or less (1 point) ?Points?1 ?Interpretation?Negative ???Miscellaneous:?Caffeine: no. ?Children: yes, 2. ?Exercise: yes, walking. ?Marital status: . 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 * Medications:?TakingAtorvasta tin Calcium 40 MG Tablet 1 tablet Orally Once a day metFORMIN HCl 500 MG Tablet 1 tablet with a meal Orally Once a day Vitamin D2 Ciclopirox Olamine 0.77 % Cream 1 application to affected area Externally Twice a day to effected areas on feet Taking Atorvastatin Calcium 40 MG Tablet 1 tablet Orally Once a day Taking metFORMIN HCl 500 MG Tablet 1 tablet with a meal Orally Once a day Taking Vitamin D2 Taking Ciclopirox Olamine 0.77 % Cream 1 application to affected area Externally Twice a day to effected areas on feet Not-Taking/PRNCiclopirox Olamine 0.77 % Cream 1 application [...] Verified] Objective: * Vitals:?Ht: 5ft 7in, Wt:205, BMI:32.10, Shoe size:8.5, BP:120/77mm Hg, BS:182. * ???Past Orders: ???Lab:HEMOGLOBIN A1C (GLYCO HEMOGLOBIN) (Order Date - 09/01/2023) (Collection Date & Time - 09/01/2023 08:05 AM) ? Value Reference Range ?HEMOGLOBIN A1C % (HH) 7.3 * Examination: ???Ophthalmology Referral: ?DIABETES EYE EXAM?Procedure Performed:?Yes ?Date of Exam Performed?12/06/2023 ?Diabetic Retinopathy Screening:?Yes 12/23 ?Findings of Diabetic Eye Exam:?no retinopathy?Neurological: ?SENSORY:?Neurological exam demonstrates, reduced vibration sensation, 5.07 monofilament test performed at plantar aspects of 5 varied sites per foot shows sensation, reduced , at Forefoot, B/L.?Vascular: ?DP PULSES (B):?3/4, B/L.?PT PULSES (B):? 2/4, B/L.?CAPILLARY FILL TIME:?3 secs. per digit. B/L.?TROPHIC CONDITION-TEXTURE/ELASTICITY/TURGOR/HAIR GROWTH (B):?normal, B/L.?TEMPERTURE GRADIENT (C):?normal, B/L.?PIGMENTATION:?normal, B/L.?EDEMA (C):?absent, B/L.?TELANGECTASIA:?absent, B/L.?Nails: ?NAILS are:?Elongated, overgrown, dystrophic, lytic, [...] habitus, and in no acute distress.?ORIENTED:?person,place, and time.?FOOT EXAM:?Lower Extremity Neurological Exam performed:?Yes ?Visual exam of foot performed:?Yes ?Date?05/23/2024 ?Footwear Evaluation?Footwear Evaluation performed:?Yes?Orthopedic: ?MUSCLE STRENGTH:?5/5 all groups in a symmetrical fashion , B/L.?FOOT MORPHOLOGY:? Pes Planus structure, B/L-mild.?FOOTWEAR:?fair condition.? Assessment: * Assessment: 1.?Type 2 diabetes mellitus with diabetic polyneuropathy - E11.42???2.?Pain in right toe(s) - M79.674???3.?Tinea unguium - B35.1 (Primary)???4.?Pain in left toe(s) - M79.675???5.?Skin disease - L98.9???6.?Tinea pedis - B35.3??? Plan: * Treatment: * Procedures:?Debride Nail 6-10:?Nail debridement?Nail debridement performed extensively to reduce/remove overall nail length and girth, subungual debris, and necrotic tissue, by manual and electrical means with use of a nail nipper and/or dremel, to more viable healthy nail plate or bed tissue 6-10. Silver nitrate used for any petechial bleeding as necessary. Patient chooses, no pharmaceutical tx (94305).?Keratoma Treatment:?Parring or Cutting of Benign Hyperkeratotic Lesion(s)?88323 (2-4 Lesions) - The Benign hyperkeratotic lesions, as described above were pared, and/or cut utilizing a sterile #15 blade, tissue nippers, and/or dremel.? * Procedure Codes:?13322 DEBRI DE NAIL, 6 OR MORE, Modifiers: XS 99396 TRIM SKIN LESIONS, OVER 4, Modifiers: XS [...] Provider:?Jose Casey DPM Date:? 024 Generated for Dallini francois/Randag/eTransmitting on:?12/14/2024 11:18 AM EDT History and Physical Notes * HPI (History of Present Illness) Category Sub-Category Detail Notes Category Not es Skin problems Nature: dryness Location: B/L , Heel/Rearfoot Aggravated by: any pressure At Risk footcare Pt States Last PCP [...] FOOT MORPHOLOGY: Pes Planus structure, B/ L-mild FOOTWEAR: fair condition MUSCLE STRENGTH: 5/5 all groups in a symmetrical fashion , B/L General Examination GENERAL APPEARANCE: pleasant , alert, well nourished, well developed, well hydrated, with good attention to hygene/body habitus, and in no acute distress FOOT EXAM: Lower Extremity Neurological Exa m performed:: Yes Visual exam of foot performed:: Yes Date: 05/23/2024 ORIENTED: person,place, and ti me Footwear Evaluation Footwear Evaluation performe d:: Yes Ophthalmology Referral DIABETES EYE EXAM Procedure Perform ed:: Yes ?Date of Exam Performed: 12/06/2023 Diabetic Retinopathy Screening:: Yes Findings of Diabetic Eye Exam:: no retin [...]
--- OUTSIDE RECORDS SUMMARY | 2024-12-14 11:19 | XMS_ITS | Patient Health Record ---
Author Organization [facility] shaggy Kang[employer]iders Address [address] [place] [address] Care Team Providers Care Echo Vasc Tech Name Role Phone Landen Molina MD Primary Care Provider Unavail able Maribell Noland Unavailable [phone] Jose Casey Unavailable [phone] Allergies No Known Allergies Reason For Referral No Information Medications Medication SIG (Take, Route, Frequency, Duration) Notes Start Date End Date Status Ciclopirox Olamine 0.77 % 1 application to affected area Externally Twice a day to effected areas on feet for 30 days 01/11/2021 Not-Taking Ciclopirox Olamine 0.77 % 1 application Externally Twice a day to skin of feet including between the toes for 30 days Active metFORMIN HCl 500 [...] areas on feet for 30 days Active Immunizations Vaccine Route Administration Date Status Comme nts Influenza Unknown 06/02/2021 Administered Influenza Unknown 09/01/2023 Administered COVID-19 Jamarcus [employer] Jamarcus/Lelia Unknown 05/10/2022 Administered 01/08/2021 08/10/2021 Social History Tobacco Use: Social History Observation [...] Are you an other tobacco user? No Problems Problem Type SNOMED Code ICD Code Onset Dates Problem Status W/U Status Risk Notes Problem Polyneuropathy due to type 2 diabetes mellitus (758682786) Type 2 diabetes mellitus with diabetic polyneuropathy (E11.42) Active confirmed Vital Signs Blood pressure diastolic 77 mm Hg 05/23/2024 Height 5ft7in in 09/04/2024 Blood pressure systolic 120 mm Hg 05/23/2024 Weight 205 lbs 09/04/2024 BMI 32.1 kg/m2 09/04/2024 Procedures Procedure Date Ordered Date Performed Result Body Sit e 94582-TRDNYVN NAIL, 6 OR MORE 09/04/2024 N/A 94588-UJYT SKIN LESIONS, OVER 4 09/04/2024 N/A Encounters Encounter Location Date Provider Diagnosis [address] [address] 02/22/2024 Jose Casey Type 2 diabetes mellitus with diabetic polyneuropathy E11.42 ; Pain in right toe(s) M79.674 ; Tinea unguium B35.1 ; Pain in left toe(s) M79.675 ; Skin disease L98.9 and Tinea pedis B35.[address] [address] 05/23/2024 Jose Casey Type 2 diabetes mellitus with diabetic polyneuropathy E11.42 ; Pain in right toe(s) M79.674 ; Tinea unguium B35.1 ; Pain in left toe(s) M79.675 ; Skin disease L98.9 and Tinea pedis B35.[address] [address] 09/04/2024 Maribell Noland Tinea pedis of both feet B35.3 ; Type 2 diabetes mellitus with diabetic polyneuropathy E11.42 and Tinea unguium B35.1 Assessments Encounter Date Diagnosis (ICD Code) Assessment Notes Treatment Notes Treatment Clinical Notes Section Notes 02/22/2024 Type 2 diabetes mellitus with diabetic polyneuropathy (ICD-10 - E11.42) 05/23/2024 Type 2 diabetes mellitus with diabetic polyneuropathy (ICD-10 - E11.42) 09/04/2024 Tinea pedis of both feet (ICD-10 - B35.3) 09/04/2024 Type 2 diabetes mellitus with diabetic polyneuropathy (ICD-10 - E11.42) 09/04/2024 Tinea unguium (ICD-10 - B35.1) 05/23/2024 Pain in right toe(s) (ICD-10 - M79.674) 02/22/2024 Pain in right toe(s) (ICD-10 - M79.674) 02/22/2024 Pain in left toe(s) (ICD-10 - M79.675) 02/22/2024 Tinea unguium (ICD-10 - B35.1) 05/23/2024 Tinea unguium (ICD-10 - B35.1) 05/23/2024 Pain in left toe(s) (ICD-10 - M79.675) 02/22/2024 Skin disease (ICD-10 - L98.9) 02/22/2024 Tinea pedis (ICD-10 - B35.3) 05/23/2024 Skin disease (ICD-10 - L98.9) 05/23/2024 Tinea pedis (ICD-10 - B35.3) Plan Of Treatment Pending Test Test Name Order Date 47090-HAFSTRE NAIL, 6 OR MORE 09/04/2024 79166-JFHE SKIN LESIONS, OVER 4 09/04/20 24 71765-FKMF SKIN LESIONS, OVER 4 09/13/20 21 21738-FUUN SKIN LESIONS, OVER 4 12/14/19 22 62578-KLVT SKIN LESIONS, 2 TO 4 01/12/20 21 69651-HDIS SKIN LESIONS, 2 TO 4 06/22/20 Next Appt Details Provider Name:Maribell mcmullen, 03/24/2025 09:00:00 AM, [address] [place] [address], [phone], Insurance Providers Payer Name Payer Address Payer Phone Subscriber Number Group Number Insured Name Patient Relationship to Insured Coverage Start Date Coverage End Date [facility] [address] [address] [place] [id number] Shelton Hercules Self - patient is the insured Medical (General) History Medical History History ICD Code type II diabetes Surgical History Surgery Date(Month/Year) acl reconstruction knee surgery colonoscopy 02/22
--- OUTSIDE RECORDS SUMMARY | 2024-12-14 11:19 | XMS_ITS ---
Author Organization [facility] Address [address] [place] [address] Care Team Providers Care Financial Engineer Name Role Phone Jesse (RETIRED) Landen KING Primary Care Provid er Unavailable Julien Gómez Jr REASON FOR VISIT FYI Encounters Encounter Location Date Provider Diagnosis [facility] [address] [place] [address] 2023 Julien Gómez Jr Plan Of Treatment No Information Progress Notes * LILO SILVER MDOB:[birth year] (58 yo M)Acc No.[id number] Patient:?LILO SILVER :1965???Age:58 Y???Sex:Male Address:[address] [place] [address], [address] * true * Date:? Generated for Printi ng/Fajoshuag/eTransmitting on:?12/14/2024 11:18 AM EDT
--- OUTSIDE RECORDS SUMMARY | 2024-12-14 11:19 | XMS_ITS | Patient Health Record ---
Author Organization [facility] Address [address] [place] [address] Care Team Providers Care School Services Officer Name Role Phone Jesse (RETIRED) Landen KING Primary Care Provid er Unavailable Rico Hannon Julien Unavailable [phone] Allergies No Known Allergies Results Component Value Reference Range Notes Glucose, Whole Blood Reviewed date:02/09/2024 01:51:15 PM Interpretation: Performing Lab:[facility], [address] [place] [id number] Notes/Report: Glucose, Whole Blood 157 60-115 mg/dL METER # : [id number] Reason For Referral No Information Medications Medication [...] tablet Orally Once a day A ctive Immunizations Vaccine Route Administration Date Status Comme nts Influenza Unknown 07/02/2017 Administered Influenza Unknown 06/20/2023 Administered Social History Tobacco Use: Social History Observation [...] Problem Status W/U Status Risk Notes Problem 858791953 Colon cancer screening (Z12.11) Active confirmed Problem 983717288 Encounter for other preprocedural examination (Z01.818) Active confirmed Problem 500801608 Long-term curren t use of high risk medication other than anticoagulant (Z79.899) Active confirmed Vital Signs Temperature 96.9 degrees Fahrenheit 12/20/2023 Blood pressure diastolic 00 mm Hg 12/20/2023 Height 67 in 12/20/2023 Blood pressure systolic 000 mm Hg 12/20/2023 Weight 210 lbs 12/20/2023 BMI 32.89 kg/m2 12/20/2023 Encounters Encounter Location Date Provider Diagnosis [facility] [address] [place] [phone] 02/09/2024 Julien Gómez Jr Colon cancer screening Z12.11 [facility] [address] [place] [phone] 12/20/2023 Julien Gómez Jr Colon cancer screening Z12.11 ; Encounter for other preprocedural examination Z01.818 and Long-term current use of high risk medication other than anticoagulant Z79.899 [facility] [address] [address] 2023 Julien Gómez Jr Assessments Encounter Date Diagnosis (ICD Code) Assessment Notes Treatment Notes Treatment Clinical Notes Section Notes 02/09/2024 Colon cancer screening (ICD-10 - Z12.11) 12/20/2023 Colon cancer screening (ICD-10 - Z12.11) [...] Future Test Test Name Order Date COLONOSCOPY 11/15/2017 COLONOSCOPY 12/20/2023 Insurance Providers Payer Name Payer Address Payer Phone Subscriber Number Group Number Insured Name Patient Relationship to Insured Coverage Start Date Coverage End Date [facility] [address] [address] [place] [address] [id number] LILO SILVER Self - patient is the insured Medical (General) History Medical History History ICD Code Hyperlipidemia DAVID/CPAP Diabetes mellitus type 2 Colon polyps, colonoscopy 02/16, tubular adenoma, five-year followup Surgical History Surgery Date(Month/Year) ACL left knee 1993
[2024-12-14 13:37] LABS: Appearance Urine Clear; Color Urine Yellow; Glucose Urine UA >=1000 mg/dL (Negative); Leukocyte Esterase Urine Negative (Negative); Nitrite Urine Negative (Negative); PH 5.5 (5.0-9.0); Specific Gravity - Urine >= 1.030 (1.005-1.025); UMIC TRIGGER UA YES; Urine Blood Negative (Negative); Urine Ketones Trace mg/dL (Negative); Urine Protein Negative (Neg-Trace)
[2024-12-14 13:41] LABS: Hematocrit 46.5 % (42.0-52.0); Hemoglobin 15.7 g/dl (14.0-18.0); Mean Corpuscular HGB Conc 33.8 g/dl (31.0-36.0); Mean Corpuscular Hemoglobin 31.3 pg (27.0-33.0); Mean Corpuscular Volume 92.8 fL (80.0-98.0); Mean Platelet Volume 10.9 fL (9.4-12.4); Platelet Count 180 X10*3/uL (160-400); Red Blood Count 5.01 X10*6/uL (4.60-5.80); Red Cell Distribution Width 13.2 % (11.0-16.0); White Blood Count 4.3 X10*3/uL (4.8-10.8)
[2024-12-14 13:43] LABS: Bacteria Urine None Seen (None Seen); Hyaline Casts Urine 0-2 /LPF (0-2); RBC Urine 0-2 /HPF (0-2); Squamous Epithelial Cell Urine 0-2 /HPF (0-2); WBC Urine 0-5 /HPF (0-5)
[2024-12-14 13:59] LABS: Estimated Average Glucose 148 mg/dL; Hemoglobin A1C 188.0581 umol/L; Hemoglobin A1c % 6.8 % (<6.0); Total Hemoglobin (HGBA1C) 3689.5406 umol/L
[2024-12-14 14:01] LABS: Alanine Aminotransferase 43 U/L (0-40); Albumin Level 4.1 g/dL (3.5-5.0); Alkaline Phosphatase 79 U/L (39-117); Anion Gap 11 (12-20); Aspartate Amino Transferase 29 U/L (5-37); Bilirubin Direct 0.2 mg/dL (0.0-0.5); Bilirubin Total 0.7 mg/dL (0.0-1.0); Blood Urea Nitrogen 11 mg/dL (9-16); Calcium 8.8 mg/dL (8.4-10.2); Carbon Dioxide 24 mmol/L (22-29); Chloride 110 mmol/L (96-108); Cholesterol 208 mg/dL (<200); Estimated Glomerular Filt Rate > 60; Glucose Random 117 mg/dL (60-115); HDL Cholesterol 41 mg/dL (>40); LDL Cholesterol Calculated 137 mg/dL (<100); Potassium 3.9 mmol/L (3.3-5.1); Sodium 141 mmol/L (135-145); Total Protein 7.6 g/dL (6.5-8.0); Triglycerides 152 mg/dL (<150)
[2024-12-14 14:09] LABS: Prostate Specific Antigen Scr 0.84 ng/mL (<0.05-4.0)
[2024-12-14 14:16] LABS: Thyroid Stimulating Hormone 1.56 uIU/mL (0.32-4.0)
[2024-12-14 15:04] LABS: Creatinine Urine 126.45 mg/dL; Microalbumin Urine < 5.0 mg/L
== END 2024-12-14 11:16 | disposition home or self-care (01) ==
LOC: HO.HMGCX 11:15
PROVIDERS: PCP Internal Medicine; Visit Provider Internal Medicine
DX: Z12.5 Encounter for screening for malignant neoplasm of prostate (principal); E11.9 Type 2 diabetes mellitus without complications; M54.2 Cervicalgia
CPT/HCPCS: 36415; 72040; 80048; 80061; 80076; 81001; 82043; 82570; 83036; 84153; 84443; 85027

== ENCOUNTER → 2024-12-14 11:24 | Outpatient (BNV) | payer OTHER, SELFPAY | PROVIDERS: PCP Internal Medicine; Visit Provider Radiology Diagnostic Radiology | DX: M50.30 Other cervical disc degeneration, unspecified cervical region (principal) | CPT/HCPCS: 72040 ==